=== PATIENT | female | born 1930 | race Caucasian/White ===

== ENCOUNTER 2016-12-21 22:30 | Emergency (ER) | payer MEDICARE, BC ==
[2016-12-22 01:12] VITALS: BP 168/94
== END 2016-12-22 01:10 | disposition left against medical advice (07) ==
LOC: ER 22:30
DX: Z53.21 Procedure and treatment not carried out due to patient leaving prior to being seen by health care provider (principal)

== ENCOUNTER 2016-12-24 01:04 | Emergency (ER) | payer MEDICARE, BC ==
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
[2016-12-24 01:43] LABS: Hematocrit 41.5 % (37.0-47.0); Hemoglobin 14.4 gm/dL (12.5-16.0); Mean Cell Volume 84.9 fl (78-100); Mean Corpuscular Hemoglobin 29.4 pg (27-31); Mean Corpuscular Hgb Conc 34.7 g/dl (32-36); Mean Platelet Volume 11.2 fl (6.0-9.5); Neutrophil # 7.2 K/mm3 (1.3-6.0); Platelet Count 191 K/mm3 (150-450); Red Blood Count 4.89 M/mm3 (4.2-5.4); Red Cell Distribution Width 13.6 % (11.5-14.0); White Blood Count 9.6 K/mm3 (4.0-10.5)
[2016-12-24 02:04] LABS: ALT 19 U/L (19-67); AST 17 U/L (0-48); Albumin * 3.4 gm/dl (3.4-5.0); Alkaline Phosphatase * 48 U/L (50-170); Anion Gap 12.2 mmol/L (6.8-13.8); BUN/Creatinine Ratio 23.9 (9.0-21.6); Bilirubin, Total 0.5 mg/dL (0.0-1.1); Blood Urea Nitrogen 27 mg/dL (3-23); Ca. Corrected For Albumin 9.3 mg/dL (8.4-10.2); Calcium * 9.1 mg/dL (7.9-10.9); Carbon Dioxide 28.5 mmol/L (24-32.6); Chloride 103 mmol/L (97-106); Glucose * 122 mg/dL (70-110); Potassium 3.7 mmol/L (3.4-4.6); Sodium 140 mmol/L (132-142); Total Protein 6.9 gm/dL (6.2-8.2); Troponin I Less than 0.017 ng/ml (0.00-0.10)
[2016-12-24] MEDS ORDERED: DICLOFENAC SODIUM 100 APPL TUBE TP ONE (02:50)
[2016-12-24 03:54] VITALS: BP 149/89
== END 2016-12-24 03:26 | disposition home or self-care (01) ==
LOC: ER 01:04
DX: E86.0 Dehydration (principal); S83.92XA Sprain of unspecified site of left knee, initial encounter; W17.89XA Other fall from one level to another, initial encounter; Y93.9 Activity, unspecified; Y92.481 Parking lot as the place of occurrence of the external cause; S83.91XA Sprain of unspecified site of right knee, initial encounter; F41.8 Other specified anxiety disorders; K21.9 Gastro-esophageal reflux disease without esophagitis; I10 Essential (primary) hypertension

== ENCOUNTER 2017-01-14 08:56 | Emergency (ER) | payer MEDICARE, BC ==
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
[2017-01-14 09:38] LABS: Hematocrit 43.8 % (37.0-47.0); Hemoglobin 14.8 gm/dL (12.5-16.0); Mean Cell Volume 85.5 fl (78-100); Mean Corpuscular Hemoglobin 28.9 pg (27-31); Mean Corpuscular Hgb Conc 33.8 g/dl (32-36); Mean Platelet Volume 10.6 fl (6.0-9.5); Neutrophil # 4.2 K/mm3 (1.3-6.0); Neutrophil % 68.7 % (42-75.0); Platelet Count 214 K/mm3 (150-450); Red Blood Count 5.12 M/mm3 (4.2-5.4); Red Cell Distribution Width 13.2 % (11.5-14.0); White Blood Count 6.1 K/mm3 (4.0-10.5)
[2017-01-14 09:57] LABS: Albumin * 3.5 gm/dl (3.4-5.0); Anion Gap 11.8 mmol/L (6.8-13.8); BUN/Creatinine Ratio 13.1 (9.0-21.6); Bilirubin, Total 0.6 mg/dL (0.0-1.1); Ca. Corrected For Albumin 9.3 mg/dL (8.4-10.2); Calcium * 9.2 mg/dL (7.9-10.9); Potassium 3.8 mmol/L (3.4-4.6); Total Protein 7.5 gm/dL (6.2-8.2)
[2017-01-14 10:42] LABS: Urine Bilirubin Negative (NEGATIVE); Urine Blood Negative /ul (NEGATIVE); Urine Ketone Negative (NEGATIVE); Urine Nitrite Negative (NEGATIVE); Urine Protein Negative (NEGATIVE); Urine Specific Gravity 1.015 SP.GR. (1.005-1.010); Urine Urobilinogen Normal (NORMAL)
[2017-01-14 10:45] VITALS: BP 141/77
[2017-01-14 10:51] LABS: Urine Appearance Clear; Urine Bacteria None Seen; Urine Color Yellow; Urine RBC None Seen /hpf (0-5); Urine WBC None Seen /hpf (0-5)
== END 2017-01-14 10:55 | disposition home or self-care (01) ==
LOC: ER 08:56
DX: J32.3 Chronic sphenoidal sinusitis (principal)

== ENCOUNTER 2020-02-25 12:28 | Inpatient (IN) ==
[2020-02-25] MEDS ORDERED: NORMAL SALINE 1,000 ML IV ONE ×4 (12:48→16:50)
[2020-02-25] MEDS ORDERED: DILTIAZEM HCL 5 MG/ML VIAL IV ONE ×2 (12:48→13:48)
[2020-02-25] MEDS ORDERED: DILTIAZEM HCL 125 MG in DEXTROSE 5 % IN WATER 100 ML IV PRN ×2 (13:11)
[2020-02-25 13:47] LABS: Hematocrit 41.2 % (37.0-47.0); Hemoglobin 13.3 gm/dL (12.5-16.0); Mean Cell Volume 88.4 fl (78-100); Mean Corpuscular Hemoglobin 28.5 pg (27-31); Mean Corpuscular Hgb Conc 32.3 g/dl (32-36); Mean Platelet Volume 11.3 fl (8-12.5); Neutrophil # 15.6 K/mm3 (1.3-6.0); Neutrophil % 87.1 % (42-75.0); Platelet Count 259 K/mm3 (150-450); Red Blood Count 4.66 M/mm3 (4.2-5.4); Red Cell Distribution Width 14.6 % (11.5-14.0); White Blood Count 17.9 K/mm3 (4.0-10.5)
[2020-02-25 14:06] LABS: Albumin * 2.9 gm/dl (3.4-5.0); Anion Gap 11.5 mmol/L (6.8-13.8); BUN/Creatinine Ratio 26.3 (9.0-21.6); Bilirubin, Total 0.7 mg/dL (0.0-1.1); Ca. Corrected For Albumin 9.4 mg/dL (8.4-10.2); Calcium * 8.8 mg/dL (7.9-10.9); Carbon Dioxide 28.5 mmol/L (24-32.6); Total Protein 6.8 gm/dL (6.2-8.2)
[2020-02-25 14:08] LABS: Troponin I 0.401 ng/mL (0.00-0.10)
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
[2020-02-25 16:26] LABS: Urine Appearance Slightly Cloudy (CLEAR); Urine Color Yellow
[2020-02-25 16:30] LABS: Urine Bilirubin 1 mg/dl (NEGATIVE); Urine Blood 250 /ul (NEGATIVE); Urine Ketone Negative (NEGATIVE)
[2020-02-25 16:31] LABS: Urine Bacteria None Seen; Urine Nitrite Negative (NEGATIVE); Urine Protein 30 mg/dL (NEGATIVE); Urine RBC 0-5 /hpf (0-5); Urine Urobilinogen Normal (NORMAL); Urine WBC 0-5 /hpf (0-5)
[2020-02-25 16:32] LABS: Urine Amorphous Sediment Few - 1+ (NONE-FEW); Urine Hyaline Cast 0-5 /LPF
[2020-02-25] MEDS ORDERED: METOPROLOL TARTRATE 1 MG/ML AMPUL IV ONE (18:15)
[2020-02-25] MEDS: DILTIAZEM HCL 125 MG in DEXTROSE 5 % IN WATER 100 ML IV PRN ×2 (18:31)
[2020-02-25] MEDS ORDERED: POLYVINYL ALCOHOL 150 DROP BTL EACHEYE PRN (19:10)
--- NOTE | 2020-02-25 19:20 | HP ---
Chief Complaint - Chief Complaint Date of Service: 02/25/20 Time of Service: 18:15 Chief Complaint: Multiple falls, rhabdomyolysis, atrial fibrillation with RVR History of Present Illness: Bharti Werner is an 89-year-old patient of Dr. Emile Barrera MD who is admitted through the emergency room for multiple body trauma sustained in a fall at home. She fell sometime on Thursday (yesterday) and had been on the floor since the fall. She was found this morning and brought to the hospital per EMS. She has a lot of facial bruising and swelling, bruises on her knees arms and chest. The nasal bone is depressed and tender. The right cheek is also tender in the right maxillary area. She was found to be in atrial fibrillation with RVR was treated with IV Cardizem in ER which slowed her heart rate down into the upper 90s and lower 100s. After being moved from the ER to her MedSurg bed her heart rate jumped up into the 190s. Admission lab: White count is 17,900 with 87% neutrophils and some bands. Hemoglobin is normal at 13.3 g and hematocrit is 41.2% but I suspect is hemoconcentrated. MCV is normal at 88. Her sodium is 142, potassium 4.0, chloride 105, CO2 is 28.5. The BUN is 51 and the creatinine is 1.94 with an EGFR of 26. Blood sugar was randomly 158. Her AST is elevated at 133 but the ALT and alkaline Rajesh are both normal. Her CK is 3552 and the troponin is elevated at 0.401. Her total protein is 6.8 and albumin is decreased at 2.9. The urinary protein is 30 with blood of 250 and I could test positive. All other values were normal and no culture was set up. Imaging: CT of the chest shows mild cardiomegaly, a 3.6 cm adrenal adenoma, lingular atelectasis versus scar, and 11.6 mm groundglass right upper lobe nodule, and a nondisplaced fracture of the right sixth rib. CT scan of the cervical spine shows degenerative disc disease at C5-C6 and C6-C7 without any visible fractures. CT of the face shows a probable occult fracture with air- fluid levels in the right frontal and left maxillary sinuses. There is mucosal disease of the ethmoids and right maxillary sinus. There is right periorbital swelling with a depressed nasal bone fracture, right cheek swelling with air dissecting into the soft tissue, and swollen lips. I suspect she has an occult maxillary fracture. CT scan of the head just shows age-related atrophy but no acute event. X-ray of the knee shows DJD of the knees. X-ray of the wrist does not reveal an acute fracture. There is a osseous density in the ulnocarpal compartment that appears to be old. Medical History (Last Reviewed 02/25/20 @ 18:06 by Yana Lopez RN) Osteoarthritis of knees, bilateral (Chronic) Rhinitis, allergic (Chronic) Onset Date: Unknown Raynaud's disease (Chronic) Onset Date: ~09/22/14 Hypokalemia (Chronic) Onset Date: ~04/19/12 Hypertension (Chronic) Onset Date: ~04/18/13 Hyperlipidemia (Chronic) Onset Date: ~04/18/13 GERD (gastroesophageal reflux disease) (Chronic) Onset Date: Unknown Diverticulitis (Chronic) Onset Date: Unknown Constipation (Chronic) Onset Date: ~04/18/13 Chronic hypokalemia (Chronic) Onset Date: ~06/22/16 Benign paroxysmal positional vertigo (Chronic) Onset Date: ~11/24/13 Anxiety (Chronic) Onset Date: Unknown CVA (cerebral vascular accident) Cystocele, lateral Onset Date: Unknown Gastroenteritis Onset Date: Unknown Hemorrhoids Onset Date: Unknown Rectocele Onset Date: Unknown Sinusitis, acute Onset Date: Unknown Urinary tract infection Onset Date: Unknown Varicose veins of lower extremity Onset Date: Unknown Surgical History: Surgical History (Last Reviewed 02/25/20 @ 18:07 by Yana Lopez RN) H/O colonoscopy Onset Date: ~06/20/08 08- internal hemorrhoid, 03/21/14- tubular ademona x 2 serrated adenoma, hyperplastic polyp History of YAG laser capsulotomy of lens Onset Date: ~01/01/10 01/15/10 History of cataract surgery Onset Date: ~08/03/07 10/26/07 History of cholecystectomy Onset Date: ~11/16/02 Family History: Family History (Last Reviewed 02/25/20 @ 18:07 by Yana Lopez RN) Brother Myocardial infarction Mother Cancer liver Asthma Son Cancer colon Social History: (Last Reviewed 02/25/20 @ 18:08 by Yana Lopez RN) Social History: care home: No Marital status: / current occupational status: retired current occupation: retired Service: No Tobacco: Smoking Status: Former smoker Alcohol: alcohol intake: never Substance Use: substance use type: does not use Dietary Habits: caffeine: No Review Of Systems (GEN) - Review of Systems Generalized/Overall Review: Present: Weakness, Malaise EENTM: Present: Blurred Vision, Nose Pain, Other - Right maxillary pain and swelling. Marked facial swelling and ecchymosis with "raccoon eyes". Depressed nasal fracture and swollen lips.. Absent: Double Vision Respiratory: Present: No Symptoms Reported Cardiac: Present: Other - She is asymptomatic but with atrial fib and marked RVR into the 180s and 190s. Abdominal: Present: No Symptoms Reported Genitourinary: Present: No Symptoms Reported Musculoskeletal: Present: Joint Pain - Right rib pain, bilateral knee pain, left wrist pain, right facial pain, nasal bone pain., Muscle Pain Neurological: Present: Anxiety, Weakness Skin: Present: Bruising - Diffuse bruising of the face arms knees. She is on Plavix. Endocrine: Present: No Symptoms Reported Immunizations: IMMUNIZATION HX Immunizations Up to Date Yes History of Influenza Vaccine More Information Required Hx Pneumococcal Vaccination More Information Required Allergies/Adverse Reactions: Allergies Allergy/AdvReac Type Severity Reaction Status Date / Time amoxicillin Allergy Unknown Verified 02/25/20 18:08 azithromycin [From Zithromax] Allergy Unknown Verified 02/25/20 18:08 Home Medications: HOME MEDICATIONS L. gasseri-B. bifidum-B longum 1.5 billion cell capsule 1 cap PO .COMPLEX cap 02/01/18 [Last Taken Unknown] artifi.tears(hypromellose)(PF) 0.3 % eye drops 1 drp OP 4-8XD PRN 02/01/18 [Last Taken Unknown] cholecalciferol (vitamin D3) 125 mcg (5,000 unit) tablet 5,000 unit PO DAILY 02/01/18 [Last Taken Unknown] multivitamin 1 tab PO DAILY 02/01/18 [Last Taken Unknown] acetaminophen 500 mg tablet 1,000 mg PO Q6H PRN tab 03/24/18 [Last Taken 11/07/18 16:15] phenylephrine HCl 10 mg tablet 10 mg PO DAILY PRN tab 10/03/19 [Last Taken Unknown] meclizine 25 mg tablet 25 mg PO TID PRN #100 tab 11/03/19 [Last Taken Unknown] atenolol 50 mg tablet 50 mg PO DAILY #60 tab 01/17/20 [Last Taken Unknown] clopidogrel 75 mg tablet See Rx Instructions .ROUTE .COMPLEX #60 tab 01/17/20 [Last Taken Unknown] nifedipine 30 mg tablet,extended release 30 mg PO HS #60 tab 01/17/20 [Last Taken Unknown] alprazolam 0.25 mg tablet 0.25 mg PO Q6H PRN #90 tab 01/31/20 [Last Taken Unknown] levothyroxine 88 mcg tablet 88 mcg PO DAILY #90 tab 01/31/20 [Last Taken Unknown] Exam - Exam Vital Signs: Vital Signs - Last Taken Temp 36.5 C 02/25/20 17:25 Pulse 143 H 02/25/20 18:45 Resp 20 02/25/20 17:25 BP 137/91 H 02/25/20 18:31 Pulse Ox 96 02/25/20 17:25 Constitutional: Present: Alert, Oriented x3, Cooperative, Well developed, Well nourished, No distress, Elderly, Obese ENT Exam: Present: hearing grossly normal, pharynx normal, TMs normal, muffled/hoarse voice Eye Exam: bilateral eye: PERRL, EOMI, right eye: normal inspection - Left eye is swollen shut. Bilateral periorbital edema and ecchymosis. Neck: Present: limited range of motion, stiff neck, tender midline Back Exam: Present: other - Bruising on back Respiratory: Present: chest non-tender, lungs clear, normal breath sounds, no respiratory distress, no accessory muscle use Cardiovascular/Chest: Present: tachycardia Peripheral Pulses: carotid (R): 2+, carotid (L): 2+, radial (R): 2+, radial (L): 2+ Abdomen: Present: Normal bowel sounds, soft, nontender, nondistended, no rebound tenderness, no hepatospenomegaly, no masses, obese /Rectal: Present: Exam deferred Extremity: Present: no calf tenderness, normal capillary refill, other - Ecchymosis of both knees Skin Exam: Present: other - Diffuse ecchymosis as described previously Lymphatic: Present: no adenopathy Neurologic: Present: medical claims manager II-XII nml as tested, no motor/sensory deficits, abnormal cerebellar tests, motor weakness Appearance: Present: no memory impairment, disheveled Eye contact: Present: cooperative, good eye contact, increased rate of speech, other - Hoarseness Thoughts: Present: normal thought pattern, no apparent hallucination Diagnostic Studies: Abnormal Lab Results 02/25/20 02/25/20 02/25/20 Range/Units 13:39 13:39 15:57 WBC 17.9 H (4.0-10.5) K/mm3 RDW 14.6 H (11.5-14.0) % Immature Gran % (Auto) 0.80 H (0.001-0.429) % Immature Gran # (Auto) 0.15 H (0.000-0.0310) K/mm3 Neutrophils % 87.1 H (42-75.0) % Lymphocytes % 4.1 L (20-51) % Neutrophils # 15.6 H (1.3-6.0) K/mm3 Lymphocytes # 0.74 L (1.5-3.5) k/mm3 Monocytes # 1.4 H (0.0-1.0) k/mm3 BUN 51 H D (3-23) mg/dL Creatinine 1.94 H D (0.4-1.4) mg/dL Est GFR (Non-Af Amer) 26 L D (60-130) mL/min BUN/Creatinine Ratio 26.3 H (9.0-21.6) Random Glucose 158 H (70-110) mg/dL AST 133 H (0-48) U/L Creatine Kinase 3552 H (0-259) U/L Troponin I 0.401 H* (0.00-0.10) ng/mL Albumin 2.9 L (3.4-5.0) gm/dl Urine Protein 30 H (NEGATIVE) mg/dL Urine Blood 250 H (NEGATIVE) /ul Urine Bilirubin 1 H (NEGATIVE) mg/dl Urine Ictotest Positive H (NEGATIVE) Hyaline Casts 0-5 H (NONE) /LPF Laboratory Results WBC 17.9 K/mm3 (4.0-10.5) H 02/25/20 13:39 RBC 4.66 M/mm3 (4.2-5.4) 02/25/20 13:39 Hgb 13.3 gm/dL (12.5-16.0) 02/25/20 13:39 Hct 41.2 % (37.0-47.0) 02/25/20 13:39 MCV 88.4 fl (78-100) 02/25/20 13:39 MCH 28.5 pg (27-31) 02/25/20 13:39 MCHC 32.3 g/dl (32-36) 02/25/20 13:39 RDW 14.6 % (11.5-14.0) H 02/25/20 13:39 Plt Count 259 K/mm3 (150-450) 02/25/20 13:39 MPV 11.3 fl (8-12.5) 02/25/20 13:39 Immature Gran % (Auto) 0.80 % (0.001-0.429) H 02/25/20 13:39 Immature Gran # (Auto) 0.15 K/mm3 (0.000-0.0310) H 02/25/20 13:39 Neutrophils % 87.1 % (42-75.0) H 02/25/20 13:39 Lymphocytes % 4.1 % (20-51) L 02/25/20 13:39 Monocytes % 7.9 % (0.0-9) 02/25/20 13:39 Eosinophils % 0.0 % (0.0-3.0) 02/25/20 13:39 Basophils % 0.1 % (0.0-1.0) 02/25/20 13:39 Nucleated RBC % 0.0 k/mm3 (0-1) 02/25/20 13:39 Neutrophils # 15.6 K/mm3 (1.3-6.0) H 02/25/20 13:39 Lymphocytes # 0.74 k/mm3 (1.5-3.5) L 02/25/20 13:39 Monocytes # 1.4 k/mm3 (0.0-1.0) H 02/25/20 13:39 Eosinophils # 0.0 k/mm3 (0.0-0.7) 02/25/20 13:39 Absolute Basophils 0.0 k/mm3 (0.0-0.1) 02/25/20 13:39 Sodium 141 mmol/L (132-142) 02/25/20 13:39 Plasma Sodium 142 mmol/L (130-142) 02/25/20 13:39 Potassium 4.0 mmol/L (3.4-4.6) 02/25/20 13:39 Chloride 105 mmol/L (97-106) 02/25/20 13:39 Carbon Dioxide 28.5 mmol/L (24-32.6) 02/25/20 13:39 Anion Gap 11.5 mmol/L (6.8-13.8) 02/25/20 13:39 BUN 51 mg/dL (3-23) H D 02/25/20 13:39 Creatinine 1.94 mg/dL (0.4-1.4) H D 02/25/20 13:39 Est GFR (Non-Af Amer) 26 mL/min (60-130) L D 02/25/20 13:39 BUN/Creatinine Ratio 26.3 (9.0-21.6) H 02/25/20 13:39 Random Glucose 158 mg/dL (70-110) H 02/25/20 13:39 Calcium 8.8 mg/dL (7.9-10.9) 02/25/20 13:39 Calcium Adj for Albumin 9.4 mg/dL (8.4-10.2) 02/25/20 13:39 Total Bilirubin 0.7 mg/dL (0.0-1.1) 02/25/20 13:39 AST 133 U/L (0-48) H 02/25/20 13:39 ALT 66 U/L (19-67) 02/25/20 13:39 Alkaline Phosphatase 54 U/L (50-170) 02/25/20 13:39 Creatine Kinase 3552 U/L (0-259) H 02/25/20 13:39 Troponin I 0.401 ng/mL (0.00-0.10) H* 02/25/20 13:39 Total Protein 6.8 gm/dL (6.2-8.2) 02/25/20 13:39 Albumin 2.9 gm/dl (3.4-5.0) L 02/25/20 13:39 Urine Color Yellow 02/25/20 15:57 Urine Appearance Slightly cloudy (CLEAR) 02/25/20 15:57 Urine pH 5.0 pH (5.0-7.0) 02/25/20 15:57 Ur Specific [place] 1.030 SP.GR. (1.005-1.010) 02/25/20 15:57 Urine Protein 30 mg/dL (NEGATIVE) H 02/25/20 15:57 Urine Glucose (UA) Negative mg/dL (NEGATIVE) 02/25/20 15:57 Urine Ketones Negative mg/dL (NEGATIVE) 02/25/20 15:57 Urine Blood 250 /ul (NEGATIVE) H 02/25/20 15:57 Urine Nitrate Negative (NEGATIVE) 02/25/20 15:57 Urine Bilirubin 1 mg/dl (NEGATIVE) H 02/25/20 15:57 Urine Ictotest Positive (NEGATIVE) H 02/25/20 15:57 Prot Sulfosalicylic Acd 1+ mg/dL (0) 02/25/20 15:57 Urine Urobilinogen Normal EU/dl (NORMAL) 02/25/20 15:57 Ur Leukocyte Esterase Negative /ul (NEGATIVE) 02/25/20 15:57 Urine RBC 0-5 /hpf (0-5) 02/25/20 15:57 Urine WBC 0-5 /hpf (0-5) 02/25/20 15:57 Ur Epithelial Cells 0-5 /hpf (0-5) 02/25/20 15:57 Amorphous Sediment Few - 1+ (NONE-FEW) 02/25/20 15:57 Urine Bacteria None seen (NONE) 02/25/20 15:57 Hyaline Casts 0-5 /LPF (NONE) H 02/25/20 15:57 Urine Culture Comments No culture indicated 02/25/20 15:57 Assessment/Plan - Narrative Narrative: 1. Start Cardizem drip 2. Metoprolol 5 mg IV push 3. DC atenolol and start metoprolol 50 mg twice daily p.o. 4. Neuro checks every 4 hours 5. Morning labs to include CBC CMP CK, urinary myoglobin, and repeat troponin 6. Start with clear liquids and progress as tolerated 7. PT, OT, and speech therapy all ordered. - Assessment/Plan (1) Fall at home Problem: Acute Qualifiers: Encounter type: subsequent encounter Qualified Code(s): W19.XXXD - Unspecified fall, subsequent encounter; Y92.009 - Unspecified place in unspecified non-institutional (private) residence as the place of occurrence of the external cause (2) Traumatic rhabdomyolysis Problem: Acute Qualifiers: Encounter type: subsequent encounter Qualified Code(s): T79.6XXD - Traumatic ischemia of muscle, subsequent encounter (3) Atrial fibrillation with RVR Problem: Acute (4) Maxillary fracture Problem: Acute Qualifiers: Encounter type: subsequent encounter Fracture type: closed Laterality: right (5) Right rib fracture Problem: Acute Qualifiers: Encounter type: subsequent encounter Fracture type: closed (6) Nasal bone fracture Problem: Acute Qualifiers: Encounter type: subsequent encounter Fracture type: closed (7) Traumatic ecchymosis of face Problem: Acute Qualifiers: Encounter type: subsequent encounter Qualified Code(s): S00.83XD - Contusion of other part of head, subsequent encounter (8) Traumatic ecchymosis of knee Problem: Acute Qualifiers: Encounter type: subsequent encounter (9) Traumatic ecchymosis of multiple sites of upper extremity and shoulder Problem: Acute Qualifiers: Encounter type: subsequent encounter
[2020-02-25] MEDS: NIFEdipine 30 MG TAB.SR.24H PO SCH (21:20)
[2020-02-25] MEDS: METOPROLOL TARTRATE 50 MG TABLET PO SCH (21:21)
[2020-02-25] MEDS: ENOXAPARIN SODIUM 40 MG/0.4 ML SYRG SC SCH (21:21)
[2020-02-26] MEDS: DILTIAZEM HCL 125 MG in DEXTROSE 5 % IN WATER 100 ML IV PRN ×4 (02:09→11:14)
[2020-02-26] MEDS: LEVOTHYROXINE SODIUM 88 MCG TABLET PO SCH ×2 (05:23→07:27)
[2020-02-26 06:33] LABS: Hematocrit 36.9 % (37.0-47.0); Hemoglobin 11.8 gm/dL (12.5-16.0); Mean Cell Volume 89.1 fl (78-100); Mean Corpuscular Hemoglobin 28.5 pg (27-31); Mean Platelet Volume 11.6 fl (8-12.5); Neutrophil # 12.3 K/mm3 (1.3-6.0); Neutrophil % 82.4 % (42-75.0); Platelet Count 239 K/mm3 (150-450); Red Blood Count 4.14 M/mm3 (4.2-5.4); Red Cell Distribution Width 14.8 % (11.5-14.0)
[2020-02-26 06:54] LABS: Albumin * 2.5 gm/dl (3.4-5.0); Bilirubin, Total 0.8 mg/dL (0.0-1.1); Ca. Corrected For Albumin 9.3 mg/dL (8.4-10.2); Calcium * 8.4 mg/dL (7.9-10.9); Carbon Dioxide 27.9 mmol/L (24-32.6); Potassium 3.9 mmol/L (3.4-4.6)
[2020-02-26 07:02] LABS: Troponin I 0.34 ng/mL (0.00-0.10)
--- NOTE | 2020-02-26 09:29 | PN ---
Subjective - Date and Time Seen Date: 02/26/20 Time: 09:00 Subjective Narrative: Bharti seems a little better this morning. Her speech is clear. She has no new problems or complaints. Her facial swelling has gone down a fair amount and there is no new areas of ecchymosis. The lower lip remains very swollen. This makes it difficult for her to suck through a straw but she can. She choked on the water when I offered it to her and it made her cough. She says that happens at home as well and then she has stress incontinence from coughing. Her vital signs have been stable and she is afebrile. Lab: White count is down to 15,000, hemoglobin has dropped to 11.8 g and hematocrit has dropped to 36.9%. There are 82% neutrophils which is down from 88%. Electrolytes show sodium of 142 potassium 3.9 chloride 108 and CO2 of 27.9. The BUN has dropped one-point to 50 but the creatinine has dropped to 1.47 from 1.94 and EGFR has increased to 36 up from 26 yesterday. Albumin has dropped to 2.5 from 2.9 yesterday. The AST has dropped to 103 and is down from 133. The troponin is still high at 0.34 but is down from admission of 0.401. Her heart rate at the time of exam is 96 bpm and her blood pressure is 98/70. She is alert and conversant and having urine output with those numbers. She remains in atrial fibrillation. She is still on a diltiazem drip. She is receiving oral metoprolol 50 mg twice daily for rate control but it is also probably lowering her blood pressure a bit. Her care will be turned back to Dr. Drew tomorrow morning. Objective - Review of Systems Generalized/Overall Review: Reports: Weakness, Malaise EENTM: Reports: Nose Pain, Other - The facial swelling has decreased and she is now able to open the left eye through a slit. Her nose is swollen and tender over the bridge. Her lower lip remains very swollen. Respiratory: Reports: Cough Cardiac: Reports: Other - She is unaware of her atrial fibrillation or RVR symptomatically. Abdominal: Reports: No Symptoms Reported Genitourinary Symptoms: Reports: Incontinent - Stress incontinence. Admission UA was unremarkable for an infectious etiology. Musculoskeletal Complaints: Reports: Joint Pain - Polymyalgias and polyarthralgias, Muscle Pain Neurological: Reports: Weakness Skin: Reports: Bruising - Diffuse facial ecchymosis. The bruising is darker in color and there is less swelling. Endocrine: Reports: No Symptoms Reported - Vitals Vitals: Last Vital Signs Temp 37.0 C 02/26/20 06:50 Pulse 99 02/26/20 06:50 Resp 19 02/26/20 06:50 BP 100/57 02/26/20 06:50 Pulse Ox 94 02/26/20 06:50 - Abnormal Lab Findings Abnormal Lab Findings: Abnormal Lab Results 02/25/20 02/25/20 02/25/20 Range/Units 13:39 13:39 15:57 WBC 17.9 H (4.0-10.5) K/mm3 RBC (4.2-5.4) M/mm3 Hgb (12.5-16.0) gm/dL Hct (37.0-47.0) % RDW 14.6 H (11.5-14.0) % Immature Gran % (Auto) 0.80 H (0.001-0.429) % Immature Gran # (Auto) 0.15 H (0.000-0.0310) K/mm3 Neutrophils % 87.1 H (42-75.0) % Lymphocytes % 4.1 L (20-51) % Neutrophils # 15.6 H (1.3-6.0) K/mm3 Lymphocytes # 0.74 L (1.5-3.5) k/mm3 Monocytes # 1.4 H (0.0-1.0) k/mm3 Plasma Sodium (130-142) mmol/L Chloride (97-106) mmol/L BUN 51 H D (3-23) mg/dL Creatinine 1.94 H D (0.4-1.4) mg/dL Est GFR (Non-Af Amer) 26 L D (60-130) mL/min BUN/Creatinine Ratio 26.3 H (9.0-21.6) Random Glucose 158 H (70-110) mg/dL AST 133 H (0-48) U/L Creatine Kinase 3552 H (0-259) U/L Troponin I 0.401 H* (0.00-0.10) ng/mL Total Protein (6.2-8.2) gm/dL Albumin 2.9 L (3.4-5.0) gm/dl Urine Protein 30 H (NEGATIVE) mg/dL Urine Blood 250 H (NEGATIVE) /ul Urine Bilirubin 1 H (NEGATIVE) mg/dl Urine Ictotest Positive H (NEGATIVE) Hyaline Casts 0-5 H (NONE) /LPF 02/26/20 02/26/20 Range/Units 06:25 06:25 WBC 15.0 H (4.0-10.5) K/mm3 RBC 4.14 L (4.2-5.4) M/mm3 Hgb 11.8 L (12.5-16.0) gm/dL Hct 36.9 L (37.0-47.0) % RDW 14.8 H (11.5-14.0) % Immature Gran % (Auto) 0.50 H (0.001-0.429) % Immature Gran # (Auto) 0.07 H (0.000-0.0310) K/mm3 Neutrophils % 82.4 H (42-75.0) % Lymphocytes % 9.6 L (20-51) % Neutrophils # 12.3 H (1.3-6.0) K/mm3 Lymphocytes # 1.44 L (1.5-3.5) k/mm3 Monocytes # 1.1 H (0.0-1.0) k/mm3 Plasma Sodium 143 H (130-142) mmol/L Chloride 108 H (97-106) mmol/L BUN 50 H (3-23) mg/dL Creatinine 1.47 H D (0.4-1.4) mg/dL Est GFR (Non-Af Amer) 36 L D (60-130) mL/min BUN/Creatinine Ratio 34.0 H (9.0-21.6) Random Glucose 136 H (70-110) mg/dL AST 103 H (0-48) U/L Creatine Kinase 2426 H (0-259) U/L Troponin I 0.340 H* (0.00-0.10) ng/mL Total Protein 6.0 L (6.2-8.2) gm/dL Albumin 2.5 L (3.4-5.0) gm/dl Urine Protein (NEGATIVE) mg/dL Urine Blood (NEGATIVE) /ul Urine Bilirubin (NEGATIVE) mg/dl Urine Ictotest (NEGATIVE) Hyaline Casts (NONE) /LPF - EKG/Xray Findings EKG: atrial fibrillation EKG read: Reviewed by me XRAY: ribs Interpretation: Reviewed by me - Exam Constitutional: Present: Alert, Oriented x3, Cooperative, Well developed, Well nourished, Mild distress, Elderly, Obese ENT Exam: Present: nasal congestion, muffled/hoarse voice - But better than yesterday, moist mucous membranes Neck: Present: limited range of motion Breasts: Present: Exam deferred Respiratory: Present: lungs clear, normal breath sounds, no respiratory distress, no accessory muscle use Cardiovascular/Chest: Present: normal peripheral pulses, tachycardia, chest tender - Right lateral chest wall. Has a known right sixth rib fracture., irregularly irregular Abdomen: Present: Normal bowel sounds, soft, nontender, nondistended /Rectal: Present: Exam deferred Extremity: Present: other - Multiple contusions particularly over the anterior knees feet, and upper extremities. Skin Exam: Present: other - Diffuse ecchymosis of the face arms and lower legs Lymphatic: Present: no adenopathy Neurologic: Present: food photographer II-XII nml as tested, no motor/sensory deficits, alert, normal mood/affect, oriented x 3, abnormal cerebellar tests, abnormal gait, motor weakness - Diffusely Appearance: Present: disheveled Eye contact: Present: cooperative, good eye contact Thoughts: Present: normal thought pattern, no apparent hallucination Assessment/Plan Plan Narrative: 1. Continue supportive care and observation. 2. Begin weaning the diltiazem as heart rate allows 3. Repeat morning labs tomorrow. 4. Dr. Drew to assume management tomorrow morning. - Problems/Diagnosis (1) Fall at home Problem: Acute Qualifiers: Encounter type: subsequent encounter Qualified Code(s): W19.XXXD - Unspecified fall, subsequent encounter; Y92.009 - Unspecified place in unspecified non-institutional (private) residence as the place of occurrence of the external cause (2) Traumatic rhabdomyolysis Problem: Acute Qualifiers: Encounter type: subsequent encounter Qualified Code(s): T79.6XXD - Traumatic ischemia of muscle, subsequent encounter (3) Atrial fibrillation with RVR Problem: Acute (4) Maxillary fracture Problem: Acute Qualifiers: Encounter type: subsequent encounter Fracture type: closed Laterality: right (5) Right rib fracture Problem: Acute Qualifiers: Encounter type: subsequent encounter Fracture type: closed (6) Nasal bone fracture Problem: Acute Qualifiers: Encounter type: subsequent encounter Fracture type: closed (7) Traumatic ecchymosis of face Problem: Acute Qualifiers: Encounter type: subsequent encounter Qualified Code(s): S00.83XD - Contusion of other part of head, subsequent encounter (8) Traumatic ecchymosis of knee Problem: Acute Qualifiers: Encounter type: subsequent encounter (9) Traumatic ecchymosis of multiple sites of upper extremity and shoulder Problem: Acute Qualifiers: Encounter type: subsequent encounter
[2020-02-26] MEDS: METOPROLOL TARTRATE 50 MG TABLET PO SCH ×2 (09:47→20:17)
[2020-02-26] MEDS: CLOPIDOGREL BISULFATE 75 MG TABLET PO SCH (09:47)
[2020-02-26] MEDS: DILTIAZEM HCL 60 MG TABLET PO SCH ×2 (17:01→20:21)
[2020-02-26] MEDS: NIFEdipine 30 MG TAB.SR.24H PO SCH (20:17)
[2020-02-26] MEDS: ENOXAPARIN SODIUM 40 MG/0.4 ML SYRG SC SCH (20:17)
[2020-02-26] MEDS ORDERED: DILTIAZEM HCL 60 MG TABLET PO SCH (21:00)
[2020-02-27] MEDS: LEVOTHYROXINE SODIUM 88 MCG TABLET PO SCH (05:28)
[2020-02-27 06:37] LABS: Hematocrit 36.2 % (37.0-47.0); Hemoglobin 11.5 gm/dL (12.5-16.0); Mean Cell Volume 89.2 fl (78-100); Mean Corpuscular Hemoglobin 28.3 pg (27-31); Mean Corpuscular Hgb Conc 31.8 g/dl (32-36); Mean Platelet Volume 11.6 fl (8-12.5); Neutrophil # 10.2 K/mm3 (1.3-6.0); Neutrophil % 78.4 % (42-75.0); Platelet Count 244 K/mm3 (150-450); Red Blood Count 4.06 M/mm3 (4.2-5.4); Red Cell Distribution Width 14.4 % (11.5-14.0)
[2020-02-27 06:55] LABS: Albumin * 2.5 gm/dl (3.4-5.0); Anion Gap 10.8 mmol/L (6.8-13.8); BUN/Creatinine Ratio 37.3 (9.0-21.6); Bilirubin, Total 0.9 mg/dL (0.0-1.1); Ca. Corrected For Albumin 9.1 mg/dL (8.4-10.2); Calcium * 8.2 mg/dL (7.9-10.9); Carbon Dioxide 25.9 mmol/L (24-32.6); Potassium 3.7 mmol/L (3.4-4.6); Total Protein 6.2 gm/dL (6.2-8.2)
[2020-02-27] MEDS: DILTIAZEM HCL 60 MG TABLET PO SCH ×3 (08:50→17:37)
[2020-02-27] MEDS: METOPROLOL TARTRATE 50 MG TABLET PO SCH (08:50)
[2020-02-27] MEDS: CLOPIDOGREL BISULFATE 75 MG TABLET PO SCH (08:50)
--- NOTE | 2020-02-27 11:49 | PN ---
Subjective - Date and Time Seen Date: 02/27/20 Time: 11:41 Subjective Narrative: Bharti has been up in the chair for the first time this morning. She requires lots of assistance just to stand or pivot.. Her speech is clear. She has no new problems or complaints. Her facial swelling has gone down a fair amount and there is no new areas of ecchymosis. The lower lip remains very swollen. This makes it difficult for her to suck through a straw but she can. She choked on the water when I offered it to her and it made her cough. She says that happens at home as well and then she has stress incontinence from coughing. Her false teeth were broken when she fell, so it is hard for her to chew. ST today recommended for the time being a soft diet. We have ordered that. Her vital signs have been stable and she is afebrile. On the monitor she remains in a fib, rate 120 to 130. BP holding right around 100 systolic. On both cardizem and metoprolol. For simplicity and to avoid medication interaction problems we will stop the beta dagmar, increase diltiazem to tid and continue to monitor. Objective - Review of Systems Generalized/Overall Review: Reports: Weakness - afraid of falling again. she has had multiple falls in the past. EENTM: Reports: No Symptoms Reported Respiratory: Reports: No Symptoms Reported Cardiac: Reports: No Symptoms Reported Abdominal: Reports: No Symptoms Reported Genitourinary Symptoms: Reports: Incontinent - stress Musculoskeletal Complaints: Reports: Back Pain, Other - facial pain right lateral rib pain bilateral knee pain Neurological: Reports: Anxiety, Weakness Skin: Reports: Bruising Endocrine: Reports: No Symptoms Reported Misc: All systems neg except as marked - Vitals Vitals: Last Vital Signs Temp 36.9 C 02/27/20 09:45 Pulse 126 H 02/27/20 09:45 Resp 13 02/27/20 09:45 BP 124/70 02/27/20 09:45 Pulse Ox 97 02/27/20 09:45 - Abnormal Lab Findings Abnormal Lab Findings: Abnormal Lab Results 02/27/20 02/27/20 Range/Units 06:30 06:30 WBC 13.0 H (4.0-10.5) K/mm3 RBC 4.06 L (4.2-5.4) M/mm3 Hgb 11.5 L (12.5-16.0) gm/dL Hct 36.2 L (37.0-47.0) % MCHC 31.8 L (32-36) g/dl RDW 14.4 H (11.5-14.0) % Immature Gran % (Auto) 0.80 H (0.001-0.429) % Immature Gran # (Auto) 0.11 H (0.000-0.0310) K/mm3 Neutrophils % 78.4 H (42-75.0) % Lymphocytes % 12.9 L (20-51) % Neutrophils # 10.2 H (1.3-6.0) K/mm3 BUN 57 H (3-23) mg/dL Creatinine 1.53 H (0.4-1.4) mg/dL Est GFR (Non-Af Amer) 34 L (60-130) mL/min BUN/Creatinine Ratio 37.3 H (9.0-21.6) Random Glucose 132 H (70-110) mg/dL AST 86 H (0-48) U/L ALT 71 H (19-67) U/L Albumin 2.5 L (3.4-5.0) gm/dl Creatinine is now stable, but better than when she came in. Liver enzymes borderline elevated, will repeat in the future. GFR has improved since admission. wbc 13, hgb 11.5. minimal increase in neutrophil percent. will continue to monitor. - Exam Constitutional: Present: Alert, Oriented x3, Cooperative, Well developed, Well nourished - bmi is 34.2 but albumin is low, suggestive of protein malnutrition. we have added ensure to diet., No distress ENT Exam: Present: normal ENT inspection, hearing grossly normal, other - facial bruising and swelling as previously noted. Neck: Present: trachea midline. Absent: lymphadenopathy (R), lymphadenopathy (L), thyromegaly Respiratory: Present: normal breath sounds, no respiratory distress, other - right lateral rib tendernes Cardiovascular/Chest: Present: no JVD, no murmur, tachycardia, irregularly irregular Abdomen: Present: Normal bowel sounds, soft, nontender, nondistended, no hepatospenomegaly, no masses, obese Extremity: Present: other - both arms bruised. back bruised. lower extremities bruised. Lymphatic: Present: no adenopathy Neurologic: Present: other - anxious affect about falls Appearance: Present: appropriate appearance, appropriate insight Eye contact: Present: cooperative, good eye contact, normal speech Thoughts: Present: normal thought pattern Assessment/Plan Plan Narrative: Plan is continue PT OT. Monitor labs and heart rhythm. Rate control with diltiazem. May be a candidate in the near future for non Vit. K anticoagulation. May require correction placement for a while. eventually, perhaps as an outpt, will need cardiology consult. - Problems/Diagnosis (1) Fall at home Problem: Acute Qualifiers: Encounter type: subsequent encounter Qualified Code(s): W19.XXXD - Unspecified fall, subsequent encounter; Y92.009 - Unspecified place in unspecified non-institutional (private) residence as the place of occurrence of the external cause (2) Dehydration Problem: Acute (3) Rhabdomyolysis Problem: Acute (4) Atrial fibrillation with RVR Problem: Acute (5) Maxillary fracture Problem: Acute Qualifiers: Encounter type: subsequent encounter Fracture type: closed Laterality: right (6) Nasal bone fracture Problem: Acute Qualifiers: Encounter type: subsequent encounter Fracture type: closed (7) Right rib fracture Problem: Acute Qualifiers: Encounter type: subsequent encounter Fracture type: closed (8) Frequent falls Problem: Acute (9) Gait disturbance Problem: Acute (10) Hypoalbuminemia Problem: Acute
[2020-02-27] MEDS: ALPRAZolam 0.25 MG TABLET PO PRN (13:38)
[2020-02-27] MEDS: NIFEdipine 30 MG TAB.SR.24H PO SCH (20:30)
[2020-02-27] MEDS: ENOXAPARIN SODIUM 40 MG/0.4 ML SYRG SC SCH (20:31)
[2020-02-27] MEDS: ACETAMINOPHEN 500 MG TABLET PO PRN (21:03)
[2020-02-28 06:52] LABS: Hematocrit 34.2 % (37.0-47.0); Mean Cell Volume 88.4 fl (78-100); Mean Corpuscular Hemoglobin 28.4 pg (27-31); Mean Corpuscular Hgb Conc 32.2 g/dl (32-36); Mean Platelet Volume 11.8 fl (8-12.5); Neutrophil # 8.1 K/mm3 (1.3-6.0); Neutrophil % 78.4 % (42-75.0); Platelet Count 226 K/mm3 (150-450); Red Blood Count 3.87 M/mm3 (4.2-5.4); Red Cell Distribution Width 14.1 % (11.5-14.0); White Blood Count 10.4 K/mm3 (4.0-10.5)
[2020-02-28 07:01] LABS: Anion Gap 11.9 mmol/L (6.8-13.8); BUN/Creatinine Ratio 44.3 (9.0-21.6); Calcium * 8.3 mg/dL (7.9-10.9); Carbon Dioxide 26.4 mmol/L (24-32.6); Estimated Creat Clear 32.3; Potassium 3.3 mmol/L (3.4-4.6)
[2020-02-28] MEDS: LEVOTHYROXINE SODIUM 88 MCG TABLET PO SCH (07:22)
[2020-02-28] MEDS: ALPRAZolam 0.25 MG TABLET PO PRN (08:33)
[2020-02-28] MEDS: CLOPIDOGREL BISULFATE 75 MG TABLET PO SCH (08:33)
[2020-02-28] MEDS: DILTIAZEM HCL 90 MG TABLET PO SCH ×3 (08:33→16:13)
[2020-02-28] MEDS: AMIODARONE HCL 200 MG TABLET PO SCH ×3 (11:04→16:13)
--- NOTE | 2020-02-28 12:32 | PN ---
Subjective - Date and Time Seen Date: 02/28/20 Time: 12:12 Subjective Narrative: Bharti has been been more active with help this morning. She requires lots of assistance. Her speech is clear. She has left foot and lower leg swelling with left foot drop, ever since the fall, as well as bruising, pain and some weakness at the last shoulder. Because her left lower leg and foot are swollen and painful, it is possible she has a dvt, which we will check for with an ultra sound. The left sided weakness brings up the possibility of CVA, so we will check for that with a brain MRI. Her back is very bruised and she has left foot drop, which raises the possibility of nerve compression in the lumbosacral spine, so we will also image that area. Her facial swelling has gone down a fair amount and there is no new areas of ecchymosis. The lower lip remains very swollen. She is able to take liquids and food better today. Her heart rate is in the 120's, but increased to the 140's when ambulation, asymptomatic. BP is better, that is less low. She is afebrile. On the monitor she remains in a fib. Because of the uncontrolled heart rate I increased her diltiazem and added amiodarone. We will continue to monitor her rhythm. Her potassium is a tiny bit low, for reasons that are unclear to me. We will check a BMP tomorrow. Her wbc count has normalized, but her Hgb seems to be trending downward, so we check a hemogram tomorrow. Objective - Review of Systems Generalized/Overall Review: Reports: Weakness. Denies: Chills, Fever, Diaphoresis EENTM: Reports: Other - facial and lip pain bruising and swelling. Respiratory: Reports: No Symptoms Reported Cardiac: Reports: Edema - left lower leg and foot with foot drop in left foot as well. Abdominal: Reports: No Symptoms Reported Genitourinary Symptoms: Reports: No Symptoms Reported Musculoskeletal Complaints: Reports: Other - right rib pain, left shoulder indu and weakness. extensive bruising of back. Neurological: Reports: Anxiety, Other - left foot drop, weak left shoulder. Denies: Headache Skin: Reports: Bruising, Other - open skin areas both legs, we will keep them clean and observe. Endocrine: Reports: No Symptoms Reported Misc: All systems neg except as marked - Vitals Vitals: Last Vital Signs Temp 36.4 C 02/28/20 10:48 Pulse 127 H 02/28/20 10:48 Resp 16 02/28/20 10:48 BP 124/62 02/28/20 10:48 Pulse Ox 96 02/28/20 10:48 - Abnormal Lab Findings Abnormal Lab Findings: Abnormal Lab Results 02/28/20 02/28/20 Range/Units 06:47 06:47 RBC 3.87 L (4.2-5.4) M/mm3 Hgb 11.0 L (12.5-16.0) gm/dL Hct 34.2 L (37.0-47.0) % RDW 14.1 H (11.5-14.0) % Immature Gran % (Auto) 0.60 H (0.001-0.429) % Immature Gran # (Auto) 0.06 H (0.000-0.0310) K/mm3 Neutrophils % 78.4 H (42-75.0) % Lymphocytes % 9.6 L (20-51) % Neutrophils # 8.1 H (1.3-6.0) K/mm3 Lymphocytes # 1.00 L (1.5-3.5) k/mm3 Potassium 3.3 L (3.4-4.6) mmol/L BUN 51 H (3-23) mg/dL Est GFR (Non-Af Amer) 47 L D (60-130) mL/min BUN/Creatinine Ratio 44.3 H (9.0-21.6) Random Glucose 124 H (70-110) mg/dL - Exam Constitutional: Present: Alert, Oriented x3, Cooperative, Well developed, No distress ENT Exam: Present: hearing grossly normal Neck: Present: normal inspection, trachea midline. Absent: lymphadenopathy (R), lymphadenopathy (L), thyromegaly Respiratory: Present: lungs clear, other - tender right lateral rib Cardiovascular/Chest: Present: tachycardia, irregularly irregular Abdomen: Present: Normal bowel sounds, soft, nontender, nondistended, no hepatospenomegaly, no masses /Rectal: Present: Exam deferred Extremity: Present: other - swelling left lowe leg and foot with foot drop on left. arms remain bruised. left shoulder bruised tender and weak. Skin Exam: Present: warm/dry. Absent: diaphoresis Lymphatic: Present: no adenopathy Neurologic: Present: oriented x 3, abnormal gait Appearance: Present: appropriate appearance, appropriate insight, neat Eye contact: Present: cooperative, good eye contact, normal speech Thoughts: Present: normal thought pattern Assessment/Plan - Problems/Diagnosis (1) Left foot drop Problem: Acute Narrative: will check for nerve compression at the level of the lumbosacral spine and will check because of left arm weakness and possible CVA. (2) Left leg pain Problem: Acute Narrative: consider dvt or left lumbosacral nerve compression. we will will do ultrasound for dvt and image for nerve compression at level of lumbosacral spine. (3) Left leg swelling Problem: Acute (4) Left-sided weakness Problem: Acute Narrative: will check for CVA (5) Abrasions of multiple sites Problem: Acute Narrative: lower extremities, bilateral, multiple, superficial (6) Fall at home Problem: Acute Qualifiers: Encounter type: subsequent encounter Qualified Code(s): W19.XXXD - Unspecified fall, subsequent encounter; Y92.009 - Unspecified place in unspecified non-institutional (private) residence as the place of occurrence of the external cause (7) Dehydration Problem: Acute Narrative: will check bmp and hemogram tomorrow. (8) Rhabdomyolysis Problem: Acute (9) Atrial fibrillation with RVR Problem: Acute (10) Maxillary fracture Problem: Acute Qualifiers: Encounter type: subsequent encounter Fracture type: closed Laterality: right (11) Nasal bone fracture Problem: Acute Qualifiers: Encounter type: subsequent encounter Fracture type: closed (12) Right rib fracture Problem: Acute Qualifiers: Encounter type: subsequent encounter Fracture type: closed (13) Frequent falls Problem: Acute (14) Gait disturbance Problem: Acute (15) Hypoalbuminemia Problem: Acute
[2020-02-28] MEDS ORDERED: AMIODARONE HCL 200 MG TABLET PO SCH (13:00)
[2020-02-28] MEDS ORDERED: LEVOFLOXACIN 500 MG TABLET PO SCH (16:00)
[2020-02-28] MEDS: ACETAMINOPHEN 500 MG TABLET PO PRN (21:27)
[2020-02-28] MEDS: CEFDINIR 300 MG CAPSULE PO SCH (21:27)
[2020-02-28] MEDS: ENOXAPARIN SODIUM 40 MG/0.4 ML SYRG SC SCH (21:27)
[2020-02-29] MEDS: ACETAMINOPHEN 500 MG TABLET PO PRN (04:09)
[2020-02-29 05:54] LABS: Hematocrit 32.6 % (37.0-47.0); Hemoglobin 10.7 gm/dL (12.5-16.0); Mean Corpuscular Hemoglobin 28.2 pg (27-31); Mean Corpuscular Hgb Conc 32.8 g/dl (32-36); Mean Platelet Volume 11.1 fl (8-12.5); Platelet Count 221 K/mm3 (150-450); Red Blood Count 3.79 M/mm3 (4.2-5.4); Red Cell Distribution Width 13.8 % (11.5-14.0)
[2020-02-29 06:05] LABS: Anion Gap 16.1 mmol/L (6.8-13.8); Calcium * 8.3 mg/dL (7.9-10.9); Carbon Dioxide 24.2 mmol/L (24-32.6); Estimated Creat Clear 34.7; Potassium 3.3 mmol/L (3.4-4.6)
[2020-02-29] MEDS: LEVOTHYROXINE SODIUM 88 MCG TABLET PO SCH (07:35)
--- NOTE | 2020-02-29 07:51 | PN ---
Progess Note - Interim Date: 02/29/20 Time: 07:48 Narrative: 02/29/20 07:48 ultrasound negative for dvt. brain MRI no stroke, but possible right maxillary sinusitis (reason for elevated wbc this morning? oral antibiotics started yesterday). MRI low back shows spinal stenosis and foraminal stenosis but the foraminal stenosis is worse on the right and her foot drop is on the left. perhaps the foot drop is related to direct pressure on the peripheral nerve while she was on the floor. the plan will be to continue PT and observation.
[2020-02-29] MEDS: DILTIAZEM HCL 90 MG TABLET PO SCH ×3 (09:07→16:28)
[2020-02-29] MEDS: AMIODARONE HCL 200 MG TABLET PO SCH ×3 (09:07→16:29)
[2020-02-29] MEDS: CEFDINIR 300 MG CAPSULE PO SCH ×2 (09:07→20:29)
[2020-02-29] MEDS: CLOPIDOGREL BISULFATE 75 MG TABLET PO SCH (09:08)
[2020-02-29 12:11] LABS: Urine Bilirubin Negative (NEGATIVE); Urine Blood Negative /ul (NEGATIVE); Urine Ketone Negative (NEGATIVE); Urine Nitrite Negative (NEGATIVE); Urine Protein 15 mg/dL (NEGATIVE); Urine Urobilinogen Normal (NORMAL)
[2020-02-29 12:22] LABS: Urine Appearance Clear (CLEAR); Urine Color Yellow; Urine RBC None Seen /hpf (0-5); Urine WBC TRACE /hpf (0-5)
[2020-02-29 12:23] LABS: Urine Bacteria TRACE; Urine Mucus TRACE
--- NOTE | 2020-02-29 12:34 | PN ---
Subjective - Date and Time Seen Date: 02/29/20 Time: 11:50 Subjective Narrative: Bharti has been been more active again this morning. She requires lots of assistance. Her speech is clear. She has left foot and lower leg swelling with left foot drop, ever since the fall, as well as bruising, pain and some weakness at the last shoulder. Because her left lower leg and foot are swollen and painful. Her facial swelling has gone even more and there are no new areas of ec chymosis. The lower lip is less swollen. She is able to take liquids and food better today. Her heart rate remains in the 120's, but increased to the 180's when ambulation, asymptomatic. BP is stable, not too low. She is afebrile. On the monitor she remains in a fib. Because of the uncontrolled heart rate I increased her diltiazem again today and added amiodarone. The plan as an outpt. will be e chocardiogram and cardiology consult. We will continue to monitor her rhythm. Her potassium remains the same, slightly, for reasons that are still unclear to me. We will check a BMP again tomorrow. Her wbc count has increased, but her Hgb seems to still trending downward, so we check a cbc tomorrow. ultrasound negative for dvt. brain MRI no stroke, but possible right maxillary sinusitis (reason for elevated wbc this morning? oral antibiotics started yesterday). MRI low back shows spinal stenosis and foraminal stenosis but the foraminal stenosis is worse on the right and her foot drop is on the left. perhaps the foot drop is related to direct pressure on the peripheral nerve while she was on the floor. the plan will be to continue PT and observation. Objective - Review of Systems Generalized/Overall Review: Reports: Weakness. Denies: Chills, Fever EENTM: Reports: No Symptoms Reported Respiratory: Reports: No Symptoms Reported Cardiac: Reports: No Symptoms Reported Abdominal: Reports: No Symptoms Reported Genitourinary Symptoms: Reports: No Symptoms Reported Musculoskeletal Complaints: Reports: Back Pain, Other - multiple other areas of pain due to fall. Neurological: Reports: Anxiety - about possibly falling again Skin: Reports: Bruising - a tiny bit better. abrasions stable. Endocrine: Reports: No Symptoms Reported Misc: All systems neg except as marked - Vitals Vitals: Last Vital Signs Temp 36.6 C 02/29/20 10:00 Pulse 124 H 02/29/20 10:00 Resp 20 02/29/20 10:00 BP 127/54 02/29/20 10:00 Pulse Ox 94 02/29/20 10:00 - Abnormal Lab Findings Abnormal Lab Findings: Abnormal Lab Results 02/29/20 02/29/20 02/29/20 Range/Units 05:35 05:35 12:04 WBC 15.0 H D (4.0-10.5) K/mm3 RBC 3.79 L (4.2-5.4) M/mm3 Hgb 10.7 L (12.5-16.0) gm/dL Hct 32.6 L (37.0-47.0) % Potassium 3.3 L (3.4-4.6) mmol/L Anion Gap 16.1 H (6.8-13.8) mmol/L BUN 30 H (3-23) mg/dL Est GFR (Non-Af Amer) 52 L (60-130) mL/min BUN/Creatinine Ratio 28.0 H (9.0-21.6) Random Glucose 152 H (70-110) mg/dL Urine Protein 15 H (NEGATIVE) mg/dL Urine Comment Culture ordered L - Exam Constitutional: Present: Alert, Oriented x3, Cooperative, Well developed, No distress ENT Exam: Present: normal ENT inspection, hearing grossly normal Neck: Present: normal inspection. Absent: lymphadenopathy (R), lymphadenopathy (L), thyromegaly Breasts: Present: Exam deferred Respiratory: Present: lungs clear, no respiratory distress Cardiovascular/Chest: Present: tachycardia, irregularly irregular Abdomen: Present: Normal bowel sounds, soft, nontender, nondistended, no hepatospenomegaly, no masses /Rectal: Present: Exam deferred Extremity: Present: other - about the same Skin Exam: Present: warm/dry, other - bruising and abrasions. Lymphatic: Present: no adenopathy Neurologic: Present: motor weakness Appearance: Present: appropriate appearance, appropriate insight, neat Eye contact: Present: cooperative, good eye contact, normal speech - speech is much better Thoughts: Present: normal thought pattern Assessment/Plan - Problems/Diagnosis (1) Sinusitis Problem: Acute Narrative: seen on brain MRI. ordered oral antibiotics yesterday. possibly the reason for an increased wbc count this morning. (2) Leukocytosis Problem: Acute Qualifiers: Leukocytosis type: unspecified Qualified Code(s): D72.829 - Elevated white blood cell count, unspecified Narrative: cause uncertain. have order blood and urine culture and repeat CXR. repeat CBC in am. (3) Left foot drop Problem: Acute Narrative: possibly related to direct damage to the peripheral nerve. plan is continue PT. (4) Left leg pain Problem: Acute (5) Left leg swelling Problem: Acute (6) Left-sided weakness Problem: Acute Narrative: no evidence of CVA on MRI (7) Abrasions of multiple sites Problem: Acute (8) Fall at home Problem: Acute Qualifiers: Encounter type: subsequent encounter Qualified Code(s): W19.XXXD - Unspecified fall, subsequent encounter; Y92.009 - Unspecified place in unspecified non-institutional (private) residence as the place of occurrence of the external cause (9) Dehydration Problem: Resolved (10) Rhabdomyolysis Problem: Resolved (11) Atrial fibrillation with RVR Problem: Acute (12) Maxillary fracture Problem: Acute Qualifiers: Encounter type: subsequent encounter Fracture type: closed Laterality: right (13) Nasal bone fracture Problem: Acute Qualifiers: Encounter type: subsequent encounter Fracture type: closed (14) Right rib fracture Problem: Acute Qualifiers: Encounter type: subsequent encounter Fracture type: closed (15) Frequent falls Problem: Acute (16) Gait disturbance Problem: Acute (17) Hypoalbuminemia Problem: Acute
[2020-02-29] MEDS: ENOXAPARIN SODIUM 40 MG/0.4 ML SYRG SC SCH (20:29)
[2020-03-01 06:42] LABS: Hematocrit 32.4 % (37.0-47.0); Hemoglobin 10.4 gm/dL (12.5-16.0); Mean Cell Volume 87.3 fl (78-100); Mean Corpuscular Hgb Conc 32.1 g/dl (32-36); Mean Platelet Volume 11.3 fl (8-12.5); Neutrophil # 10.8 K/mm3 (1.3-6.0); Neutrophil % 81.2 % (42-75.0); Platelet Count 241 K/mm3 (150-450); Red Blood Count 3.71 M/mm3 (4.2-5.4); Red Cell Distribution Width 14.1 % (11.5-14.0); White Blood Count 13.2 K/mm3 (4.0-10.5)
[2020-03-01 06:58] LABS: Anion Gap 12.9 mmol/L (6.8-13.8); BUN/Creatinine Ratio 21.1 (9.0-21.6); Calcium * 8.1 mg/dL (7.9-10.9); Carbon Dioxide 25.5 mmol/L (24-32.6); Estimated Creat Clear 41.2; Potassium 3.4 mmol/L (3.4-4.6)
[2020-03-01] MEDS: LEVOTHYROXINE SODIUM 88 MCG TABLET PO SCH (06:59)
[2020-03-01] MEDS: DILTIAZEM HCL 60 MG TABLET PO SCH ×4 (08:00→17:53)
[2020-03-01] MEDS: CLOPIDOGREL BISULFATE 75 MG TABLET PO SCH (08:00)
[2020-03-01] MEDS: AMIODARONE HCL 200 MG TABLET PO SCH ×3 (08:00→17:52)
[2020-03-01] MEDS: CEFDINIR 300 MG CAPSULE PO SCH ×2 (08:00→21:49)
[2020-03-01] MEDS: DILTIAZEM HCL 90 MG TABLET PO SCH (09:50)
--- NOTE | 2020-03-01 12:13 | PN ---
Subjective - Date and Time Seen Date: 03/01/20 Time: 11:50 Subjective Narrative: Bharti has been been a lot more active. She requires a little less assistance. Her speech is clear. She has left foot and lower leg swelling with left foot drop, ever since the fall, as well as bruising, pain and some weakness at the last shoulder. We shall follow PT recs for AFO for left foot.Her facial swelling has gone away even more and there are no new areas of ecchymosis. The lower lip is less swollen. She is able to take liquids and food better today, but there is still some trouble due to her broken dentures which are unusable.. Her heart rate remains in the 120's, asymptomatic. Our plan for that is to slowly increase diltiazem and continue amiodarone. Her rate was previously not controlled on a combination of diltiazem and metoprolol. BP is stable, not too low. She is afebrile. On the monitor she remains in a fib. The plan as an outpt. will be echocardiogram and cardiology consult. We will continue to monitor her rhythm. Her potassium is now normal. We will continue potassium supplement and recheck her bmp. Her wbc count has decreased, but is still not normal. We will check again tomorrow. Her wbc needs to be normal and her heart rate around 100 instead of 120 before I discharge her. Objective - Review of Systems Generalized/Overall Review: Reports: Weakness EENTM: Reports: Nose Pain, Other - improving bruising. Respiratory: Reports: No Symptoms Reported Cardiac: Reports: No Symptoms Reported Abdominal: Reports: No Symptoms Reported Genitourinary Symptoms: Reports: No Symptoms Reported Musculoskeletal Complaints: Reports: Joint Pain, Back Pain Neurological: Reports: Weakness Skin: Reports: Bruising, Other - abrasions healing Endocrine: Reports: No Symptoms Reported Misc: All systems neg except as marked - Vitals Vitals: Last Vital Signs Temp 36.6 C 03/01/20 10:38 Pulse 120 H 03/01/20 10:38 Resp 18 03/01/20 10:38 BP 119/77 03/01/20 10:38 Pulse Ox 93 03/01/20 10:38 - Abnormal Lab Findings Abnormal Lab Findings: Abnormal Lab Results 02/29/20 03/01/20 03/01/20 Range/Units 12:04 06:10 06:10 WBC 13.2 H (4.0-10.5) K/mm3 RBC 3.71 L (4.2-5.4) M/mm3 Hgb 10.4 L (12.5-16.0) gm/dL Hct 32.4 L (37.0-47.0) % RDW 14.1 H (11.5-14.0) % Immature Gran % (Auto) 1.00 H (0.001-0.429) % Immature Gran # (Auto) 0.13 H (0.000-0.0310) K/mm3 Neutrophils % 81.2 H (42-75.0) % Lymphocytes % 8.4 L (20-51) % Neutrophils # 10.8 H (1.3-6.0) K/mm3 Lymphocytes # 1.11 L (1.5-3.5) k/mm3 Random Glucose 112 H (70-110) mg/dL Urine Protein 15 H (NEGATIVE) mg/dL Urine Comment Culture ordered L - Exam Constitutional: Present: Alert, Oriented x3, Cooperative ENT Exam: Present: hearing grossly normal, other - resolving bruising Neck: Present: normal inspection. Absent: lymphadenopathy (R), lymphadenopathy (L), thyromegaly Respiratory: Present: lungs clear, no respiratory distress Cardiovascular/Chest: Present: tachycardia, irregularly irregular Abdomen: Present: Normal bowel sounds, soft, nontender, nondistended, no hepatospenomegaly, no masses /Rectal: Present: Exam deferred Extremity: Present: other - less swelling and bruising Skin Exam: Present: warm/dry Lymphatic: Present: no adenopathy Neurologic: Present: motor weakness Appearance: Present: appropriate appearance, appropriate insight, neat Eye contact: Present: cooperative, good eye contact, normal speech, other Thoughts: Present: normal thought pattern Assessment/Plan - Problems/Diagnosis (1) Atrial fibrillation with RVR Problem: Acute Narrative: rate is still in the 120s/ goal is 100 or less. the plan is increase diltiazem, which I did this morning, and continue amiodarone. she was previously on a combination of calcium channel block and beta dagmar, which was not controlling her rate. she won't be discharged until she reaches goal rate. (2) Sinusitis Problem: Acute Qualifiers: Sinusitis location: maxillary Chronicity: acute Recurrence: not specified as recurrent Qualified Code(s): J01.00 - Acute maxillary sinusitis, unspecified Narrative: continue antibiotic. (3) Leukocytosis Problem: Acute Qualifiers: Leukocytosis type: unspecified Qualified Code(s): D72.829 - Elevated white blood cell count, unspecified Narrative: improving. will check again tomorrow. needs to be normal before discharge. (4) Left foot drop Problem: Acute Narrative: AFO and PT. eventually chcf. (5) Left leg pain Problem: Acute (6) Left leg swelling Problem: Acute (7) Left-sided weakness Problem: Acute (8) Abrasions of multiple sites Problem: Acute (9) Fall at home Problem: Acute Qualifiers: Encounter type: subsequent encounter Qualified Code(s): W19.XXXD - Unspecified fall, subsequent encounter; Y92.009 - Unspecified place in unspecified non-institutional (private) residence as the place of occurrence of the external cause (10) Dehydration Problem: Resolved (11) Rhabdomyolysis Problem: Resolved (12) Maxillary fracture Problem: Acute Qualifiers: Encounter type: subsequent encounter Fracture type: closed Laterality: right (13) Nasal bone fracture Problem: Acute Qualifiers: Encounter type: subsequent encounter Fracture type: closed (14) Right rib fracture Problem: Acute Qualifiers: Encounter type: subsequent encounter Fracture type: closed (15) Frequent falls Problem: Acute (16) Gait disturbance Problem: Acute (17) Hypoalbuminemia Problem: Acute
[2020-03-01] MEDS: ALPRAZolam 0.25 MG TABLET PO PRN (12:39)
[2020-03-01] MEDS ORDERED: AMIODARONE HCL 200 MG TABLET PO SCH (21:00)
[2020-03-01] MEDS: ENOXAPARIN SODIUM 40 MG/0.4 ML SYRG SC SCH (21:49)
[2020-03-02] MEDS: DILTIAZEM HCL 60 MG TABLET PO SCH ×3 (02:08→16:22)
[2020-03-02] MEDS: LEVOTHYROXINE SODIUM 88 MCG TABLET PO SCH (05:40)
[2020-03-02] MEDS: AMIODARONE HCL 200 MG TABLET PO SCH ×2 (05:41→16:22)
[2020-03-02 06:08] LABS: Hematocrit 34.1 % (37.0-47.0); Mean Cell Volume 86.5 fl (78-100); Mean Corpuscular Hemoglobin 27.9 pg (27-31); Mean Corpuscular Hgb Conc 32.3 g/dl (32-36); Mean Platelet Volume 10.8 fl (8-12.5); Neutrophil # 7.4 K/mm3 (1.3-6.0); Neutrophil % 70.7 % (42-75.0); Platelet Count 297 K/mm3 (150-450); Red Blood Count 3.94 M/mm3 (4.2-5.4); White Blood Count 10.5 K/mm3 (4.0-10.5)
--- NOTE | 2020-03-02 07:11 | PN ---
Subjective - Date and Time Seen Date: 03/02/20 Time: 06:50 Subjective Narrative: Bharti continues active. She requires a little less assistance. Her speech is clear. She continues to have left foot and lower leg swelling with left foot drop, ever since the fall, as well as bruising, pain and some weakness at the left shoulder, all of which are improving. She now has an AFO for left foot.Her facial swelling has gone away even more and there are no new areas of ecch ymosis. The lower lip is less swollen. She is able to take liquids and food better today. Her heart rate is slowly decreasing, particularly noticeable if one views the graph of heart rate from admission to now.. Our plan for that is to continue the diltiazem at the same dose, 360 mg daily, while now adding back metoprolol, starting at a low dose. Will will continue her amiodarone.. Her rate was p reviously not controlled on a combination of diltiazem and metoprolol, but the diltiazem dose was lower than this, and the beta dagmar dose was also modest. BP is stable, not too low. She is afebrile. On the monitor she remains in a fib. The plan as an outpt. will be echocardiogram and cardiology consult. She still needs her rhythm and vitals monitored, especially since we are adding metoprolol to the diltiazem and amiodarone. Her wbc count is now back to normal. We will continue her antibiotic for sinusitis. Objective - Review of Systems Generalized/Overall Review: Reports: Weakness EENTM: Reports: Nose Pain, Other - facial pain Respiratory: Reports: No Symptoms Reported Cardiac: Reports: No Symptoms Reported Abdominal: Reports: No Symptoms Reported Genitourinary Symptoms: Reports: No Symptoms Reported Musculoskeletal Complaints: Reports: Other - multiple areas of pain from fall. Neurological: Reports: Anxiety - only a little about possibly falling again. Denies: Depressed Skin: Reports: Bruising Endocrine: Reports: No Symptoms Reported Misc: All systems neg except as marked - Vitals Vitals: Last Vital Signs Temp 36.6 C 03/02/20 07:02 Pulse 118 H 03/02/20 07:02 Resp 18 03/02/20 07:02 BP 123/55 03/02/20 07:02 Pulse Ox 96 03/02/20 07:02 - Abnormal Lab Findings Abnormal Lab Findings: Abnormal Lab Results 03/02/20 Range/Units 05:50 RBC 3.94 L (4.2-5.4) M/mm3 Hgb 11.0 L (12.5-16.0) gm/dL Hct 34.1 L (37.0-47.0) % Immature Gran % (Auto) 1.10 H (0.001-0.429) % Immature Gran # (Auto) 0.12 H (0.000-0.0310) K/mm3 Lymphocytes % 16.0 L (20-51) % Eosinophils % 5.4 H (0.0-3.0) % Neutrophils # 7.4 H (1.3-6.0) K/mm3 - Exam Constitutional: Present: Alert, Oriented x3, Cooperative, Well developed, No distress, Elderly, Obese ENT Exam: Present: hearing grossly normal Neck: Present: normal inspection Breasts: Present: Exam deferred Respiratory: Present: lungs clear, no respiratory distress Cardiovascular/Chest: Present: tachycardia, chest tender - over right lateral ribs, irregularly irregular Abdomen: Present: Normal bowel sounds, soft, nontender, nondistended, no hepatospenomegaly, no masses /Rectal: Present: Exam deferred Extremity: Present: other - findings stable including the swelling of left lower leg and left foot drop. Skin Exam: Present: no cyanosis, cool/dry, other - abrasions clean Lymphatic: Present: no adenopathy Neurologic: Present: normal mood/affect Appearance: Present: appropriate appearance, appropriate insight, neat Eye contact: Present: good eye contact, normal speech Thoughts: Present: normal thought pattern Assessment/Plan - Problems/Diagnosis (1) Atrial fibrillation with RVR Problem: Acute Narrative: rate has slowly decreased, especially apparent if one reviews the graph of rate since admission. I had hoped continuing amiodarone plus slowly increasing the diltiazem would control the problem. While the maximum daily dose of diltiazem is 480 mg, she is still at a substantial dose, 360 mg daily. The plan will be to slowly add back metoprolol. I would not increase the dose any more rapidly than daily. She still needs continuous cardiac monitoring. (2) Sinusitis Problem: Acute Qualifiers: Sinusitis location: maxillary Chronicity: acute Recurrence: not specified as recurrent Qualified Code(s): J01.00 - Acute maxillary sinusitis, unspecified Narrative: continue antibiotics (3) Leukocytosis Problem: Resolved Qualifiers: Leukocytosis type: unspecified Qualified Code(s): D72.829 - Elevated white blood cell count, unspecified (4) Left foot drop Problem: Acute (5) Left leg pain Problem: Acute (6) Left leg swelling Problem: Acute (7) Left-sided weakness Problem: Acute (8) Abrasions of multiple sites Problem: Acute (9) Fall at home Problem: Acute Qualifiers: Encounter type: subsequent encounter Qualified Code(s): W19.XXXD - Unspecified fall, subsequent encounter; Y92.009 - Unspecified place in unspecified non-institutional (private) residence as the place of occurrence of the external cause (10) Dehydration Problem: Resolved (11) Rhabdomyolysis Problem: Resolved (12) Maxillary fracture Problem: Acute Qualifiers: Encounter type: subsequent encounter Fracture type: closed Laterality: right (13) Nasal bone fracture Problem: Acute Qualifiers: Encounter type: subsequent encounter Fracture type: closed (14) Right rib fracture Problem: Acute Qualifiers: Encounter type: subsequent encounter Fracture type: closed (15) Frequent falls Problem: Acute (16) Gait disturbance Problem: Acute (17) Hypoalbuminemia Problem: Chronic
[2020-03-02] MEDS: METOPROLOL TARTRATE 25 MG TABLET PO SCH ×2 (07:53→15:44)
[2020-03-02] MEDS: CEFDINIR 300 MG CAPSULE PO SCH ×2 (08:57→21:22)
[2020-03-02] MEDS: CLOPIDOGREL BISULFATE 75 MG TABLET PO SCH (08:57)
--- NOTE | 2020-03-02 13:23 | PN ---
Progess Note - Interim Date: 03/02/20 Time: 13:20 Narrative: 03/02/20 13:20 I have been planning all along to start non vitamin K anticoagulation, but have held off so far, because of her EXTENSIVE bruising. Recent information is that regarding mortality, even elderly people will benefit more with anticoagulation when they have atrial fibrillation. Had a conversation just now with our pharmacist, and we decided together that her bruising is old enough she is unlikely to start bleeding more. we will replace plavix and lovenox with eliquis.
[2020-03-02] MEDS ORDERED: ALUMINUM HYD PO ONE ×2 (19:47→20:00)
[2020-03-02] MEDS ORDERED: MAG HYDROX PO ONE ×2 (19:47→20:00)
[2020-03-02] MEDS ORDERED: SIMETH PO ONE ×2 (19:47→20:00)
[2020-03-02] MEDS ORDERED: MAG HYDROX/ALUMINUM HYD/SIMETH 30 ML UDC ONE (19:54)
[2020-03-02] MEDS: APIXABAN 5 MG TABLET PO SCH (21:22)
[2020-03-03] MEDS: ALPRAZolam 0.25 MG TABLET PO PRN (00:04)
[2020-03-03] MEDS: METOPROLOL TARTRATE 25 MG TABLET PO SCH ×2 (00:04→08:54)
[2020-03-03] MEDS: DILTIAZEM HCL 60 MG TABLET PO SCH ×4 (00:06→17:57)
[2020-03-03] MEDS: AMIODARONE HCL 200 MG TABLET PO SCH ×2 (05:40→17:57)
[2020-03-03] MEDS: LEVOTHYROXINE SODIUM 88 MCG TABLET PO SCH (05:41)
[2020-03-03] MEDS: APIXABAN 5 MG TABLET PO SCH ×2 (08:51→20:36)
[2020-03-03] MEDS: CEFDINIR 300 MG CAPSULE PO SCH ×2 (08:53→20:37)
[2020-03-03] MEDS: METOPROLOL TARTRATE 50 MG TABLET PO SCH (17:57)
--- NOTE | 2020-03-03 23:14 | PN ---
Subjective - Date and Time Seen Date: 03/03/20 Time: 12:30 Subjective Narrative: Bharti is a very pleasant 89-year-old here following a fall at home which resulted in her being down significantly leading her to have rhabdomyolysis. Patient was brought in for this as well as being found to be in new onset A. fib with RVR.. Rhabdo significant improved, creatinine kinase is downtrending. Kidney function also back to baseline. Main concern now is the patient's heart rates has been difficult to control. Patient feels well otherwise despite significant bruising. Patient does have pain in her left shoulder which is limiting her ability to move it but otherwise is normal function. Patient also does have a left foot drop which I suspect peroneal nerve injury as her significant bruising around her fibular head. No acute events overnight and her lab work is impr oving. Heart rate is still been in the low 100s fairly consistent. Objective - Review of Systems Generalized/Overall Review: Denies: Weakness, Chills, Fever EENTM: Reports: Nose Pain, Other - Cheek pain Respiratory: Denies: Cough, Shortness of Breath Cardiac: Denies: Chest Pain, Edema, Palpitations, Syncope Abdominal: Reports: No Symptoms Reported Genitourinary Symptoms: Reports: No Symptoms Reported Musculoskeletal Complaints: Reports: Joint Pain - Left upper extremity and left lower extremity Neurological: Reports: Other - Left foot dorsiflexion weakness Skin: Reports: Other - Significant facial bruising Endocrine: Reports: No Symptoms Reported - Vitals Vitals: Last Vital Signs Temp 36.4 C 03/03/20 21:56 Pulse 86 03/03/20 22:00 Resp 18 03/03/20 21:56 BP 121/78 03/03/20 21:56 Pulse Ox 96 03/03/20 21:56 - Exam Constitutional: Present: Alert, Oriented x3, Cooperative, No distress, Elderly ENT Exam: Present: other - Significant facial ecchymosis, swollen lower lip Respiratory: Present: lungs clear, normal breath sounds, no respiratory distress Cardiovascular/Chest: Present: no murmur, irregularly irregular Abdomen: Present: Normal bowel sounds, soft, nontender, nondistended Extremity: Present: leg pain - left knee pain. 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 Absent: sensory deficit Appearance: Present: appropriate appearance, appropriate insight Eye contact: Present: cooperative, good eye contact Thoughts: Present: normal thought pattern, normal mood /affect Assessment/Plan Plan Narrative: Bharti is doing well and had no acute events overnight. Vital signs are improving though her heart rate still elevated. Metoprolol was increased to 50 mg 3 times daily today. Discussed possible transfer due to need for cardiology but she has improved with the 3 medicines she is on for rate control and her heart rate has gradually improved with these 3 medicines. Both patient and I feel is appropriate to see how she responds to metoprolol 50 mg 3 times daily with p ossible transfer later today/this evening if not improving. She is hemodynamically stable though and is asymptomatic from a vascular standpoint. We will continue monitor her heart rate and vascular status. Plan will be for referral to cardiology in outpatient setting if her heart rate is controlled. Patient is on Eliquis. Besides the facial pain/left upper extremity pain/lower extremity foot drop patient has no real concerns at this time. AFO for left foot drop, concern for possible peroneal nerve injury and will likely need EMG 3 weeks from fall for diagnosis. White count still within normal limits, continue treatment for sinusitis. Hypokalemia is resolved. Hypertension stable. Continue current treatment plan otherwise, nurse to call questions or concerns. - Problems/Diagnosis (1) Atrial fibrillation with RVR Problem: Acute (2) Rhabdomyolysis Problem: Resolved (3) Fall at home Problem: Acute Qualifiers: Encounter type: subsequent encounter Qualified Code(s): W19.XXXD - Unspeci fied fall, subsequent encounter; Y92.009 - Unspecified place in unspecified non- institutional (private) residence as the place of occurrence of the external cause (4) Acute knee pain Problem: Acute Qualifiers: Laterality: left Qualified Code(s): M25.562 - Pain in left knee (5) Ankle pain, left Problem: Acute Qualifiers: Chronicity: unspecified Qualified Code(s): M25.572 - Pain in left ankle and joints of left foot (6) Maxillary fracture Problem: Acute Qualifiers: Encounter type: subsequent encounter Fracture type: closed Laterality: right (7) Nasal bone fracture Problem: Acute Qualifiers: Encounter type: subsequent encounter Fracture type: closed (8) Traumatic ecchymosis of face Problem: Acute Qualifiers: Encounter type: subsequent encounter Qualified Code(s): S00.83XD - Contusion of other part of head, subsequent encounter (9) Left foot drop Problem: Acute (10) Leukocytosis Problem: Resolved Qualifiers: Leukocytosis type: unspecified Qualified Code(s): D72.829 - Elevated white blood cell count, unspecified (11) Hypokalemia Problem: Chronic (12) Hypertension Problem: Chronic Qualifiers: Hypertension type: essential hypertension Qualified Code(s): I10 - Essential (primary) hypertension (13) Sinusitis Problem: Acute Qualifiers: Sinusitis location: maxillary Chronicity: acute Recurrence: not specified as recurrent Qualified Code(s): J01.00 - Acute maxillary sinusitis, unspecified
[2020-03-04] MEDS: METOPROLOL TARTRATE 50 MG TABLET PO SCH ×3 (01:53→16:18)
[2020-03-04] MEDS: DILTIAZEM HCL 60 MG TABLET PO SCH ×3 (01:53→16:19)
[2020-03-04] MEDS: AMIODARONE HCL 200 MG TABLET PO SCH ×2 (04:58→16:18)
[2020-03-04] MEDS: LEVOTHYROXINE SODIUM 88 MCG TABLET PO SCH (05:00)
[2020-03-04] MEDS: APIXABAN 5 MG TABLET PO SCH ×2 (09:30→20:37)
[2020-03-04] MEDS: CEFDINIR 300 MG CAPSULE PO SCH ×2 (09:31→20:37)
--- NOTE | 2020-03-04 17:53 | PN ---
Subjective - Date and Time Seen Date: 03/04/20 Time: 17:51 Subjective Narrative: Bharti sitting comfortable in her chair when seen today. Heart rate has been well controlled since increasing metoprolol. Majority of readings are in the 80s and 90s with the occasional low 100s when she is up and moving. Patient states she feels well, denies chest pain or shortness of breath. She has no concerns at this time. Likely discharge home tomorrow as long as there is no unforeseen changes to her clinical picture. Objective - Review of Systems Generalized/Overall Review: Reports: No Symptoms Reported EENTM: Reports: Nose Pain, Other - Face pain Respiratory: Reports: No Symptoms Reported Cardiac: Reports: No Symptoms Reported Abdominal: Denies: Nausea, Vomiting Genitourinary Symptoms: Reports: No Symptoms Reported Musculoskeletal Complaints: Reports: Joint Pain - Left shoulder Neurological: Reports: No Symptoms Reported Skin: Reports: Bruising - Vitals Vitals: Last Vital Signs Temp 35.7 C L 03/04/20 14:06 Pulse 97 03/04/20 17:32 Resp 28 H 03/04/20 14:06 BP 124/78 03/04/20 16:19 Pulse Ox 97 03/04/20 14:06 - Exam Constitutional: Present: Alert, Oriented x3, No distress ENT Exam: Present: hearing grossly normal, other - Significant facial ecchymosis, swollen lip. Absent: nasal congestion, nasal drainage Respiratory: Present: lungs clear, normal breath sounds Cardiovascular/Chest: Present: systolic murmur, irregularly irregular - Normal rate Abdomen: Present: soft, nontender, nondistended - Facial ecchymosis from fall Skin Exam: Present: normal color, warm/dry Appearance: Present: appropriate appearance, appropriate insight Eye contact: Present: cooperative, good eye contact Thoughts: Present: normal thought pattern, normal mood /affect Assessment/Plan Plan Narrative: Bharti is doing well and had no acute events overnight. Vital signs much more stable and her heart rate is within normal range at this time. The increase of metoprolol to 50 mg 3 times daily has been a significant improvement. Patient is stable and in outpatient cardiac work-up is appropriate this time. Likely discharge home tomorrow as long as there is no changes in her clinical picture. She is hemodynamically stable and is asymptomatic from a vascular standpoint. We will continue monitor her heart rate and vascular status. Patient is on Eliquis for anticoagulation. Besides the facial pain/left upper extremity pain/lower extremity foot drop patient has no real concerns at this time. AFO for left foot drop, concern for possible peroneal nerve injury and will likely need EMG 3 weeks from fall for diagnosis. White count still within normal limits, continue treatment for sinusitis. Hypokalemia has resolved. Hypertension stable. Continue current treatment plan otherwise, nurse to call questions or concerns. - Problems/Diagnosis (1) Atrial fibrillation with RVR Problem: Acute (2) Rhabdomyolysis Problem: Resolved (3) Fall at home Problem: Acute Qualifiers: Encounter type: subsequent encounter Qualified Code(s): W19.XXXD - Unspecified fall, subsequent encounter; Y92.009 - Unspecified place in unspecified non-institutional (private) residence as the place of occurrence of the external cause (4) Acute knee pain Problem: Acute Qualifiers: Laterality: left Qualified Code(s): M25.562 - Pain in left knee (5) Ankle pain, left Problem: Acute Qualifiers: Chronicity: unspecified Qualified Code(s): M25.572 - Pain in left ankle and joints of left foot (6) Maxillary fracture Problem: Acute Qualifiers: Encounter type: subsequent encounter Fracture type: closed Laterality: right (7) Nasal bone fracture Problem: Acute Qualifiers: Encounter type: subsequent encounter Fracture type: closed (8) Traumatic ecchymosis of face Problem: Acute Qualifiers: Encounter type: subsequent encounter Qualified Code(s): S00.83XD - Contusion of other part of head, subsequent encounter (9) Left foot drop Problem: Acute (10) Leukocytosis Problem: Resolved Qualifiers: Leukocytosis type: unspecified Qualified Code(s): D72.829 - Elevated white blood cell count, unspecified (11) Hypokalemia Problem: Chronic (12) Hypertension Problem: Chronic Qualifiers: Hypertension type: essential hypertension Qualified Code(s): I10 - Essential (primary) hypertension (13) Sinusitis Problem: Acute Qualifiers: Sinusitis location: maxillary Chronicity: acute Recurrence: not specified as recurrent Qualified Code(s): J01.00 - Acute maxillary sinusitis, unspecified
[2020-03-05] MEDS: DILTIAZEM HCL 60 MG TABLET PO SCH ×2 (01:44→09:03)
[2020-03-05] MEDS: METOPROLOL TARTRATE 50 MG TABLET PO SCH ×2 (01:44→09:03)
[2020-03-05] MEDS: LEVOTHYROXINE SODIUM 88 MCG TABLET PO SCH (05:20)
[2020-03-05] MEDS: AMIODARONE HCL 200 MG TABLET PO SCH (05:20)
--- NOTE | 2020-03-05 08:42 | DS ---
(1) Atrial fibrillation with RVR Problem: Acute (2) Sinusitis Problem: Acute Qualifiers: Sinusitis location: maxillary Chronicity: acute Recurrence: not specified as recurrent Qualified Code(s): J01.00 - Acute maxillary sinusitis, unspecified (3) Leukocytosis Problem: Resolved Qualifiers: Leukocytosis type: unspecified Qualified Code(s): D72.829 - Elevated white blood cell count, unspecified (4) Left foot drop Problem: Acute (5) Left leg pain Problem: Acute (6) Left leg swelling Problem: Acute (7) Left-sided weakness Problem: Acute (8) Abrasions of multiple sites Problem: Acute (9) Fall at home Problem: Acute Qualifiers: Encounter type: subsequent encounter Qualified Code(s): W19.XXXD - Unspecified fall, subsequent encounter; Y92.009 - Unspecified place in unspecified non-institutional (private) residence as the place of occurrence of the external cause (10) Dehydration Problem: Resolved (11) Rhabdomyolysis Problem: Resolved Qualifiers: Rhabdomyolysis type: traumatic (12) Maxillary fracture Problem: Acute Qualifiers: Encounter type: subsequent encounter Fracture type: closed Laterality: right (13) Nasal bone fracture Problem: Acute Qualifiers: Encounter type: subsequent encounter Fracture type: closed (14) Right rib fracture Problem: Acute Qualifiers: Encounter type: subsequent encounter Fracture type: closed (15) Frequent falls Problem: Acute (16) Gait disturbance Problem: Acute (17) Hypoalbuminemia Problem: Chronic Date of Discharge:: 03/05/20 Hospital Course: Bharti has gradually become much more active. She requires a little less assi stance. Her speech is clear. She continues to have left foot and lower leg swelling with left foot drop, ever since the fall, as well as bruising, pain and some weakness at the left shoulder, all of which are improving. She now has an AFO for left foot.Her facial swelling has gone away even more and there are no new areas of ecchymosis. The lower lip is less swollen. She is able to take liquids and food without difficulty.. The plan as an outpt. will be echocardiogram and cardiology consult. We will continue her antibiotic for sinusitis. Heart rate remains well controlled since increasing metoprolol. Majority of readings are in the 80s and 90s with the occasional low 100s when she is up and moving. Patient states she feels well, denies chest pain or shortness of breath. Procedures Performed: none Results and Findings: Lab Pending Results 02/25/20 13:39: WBC 17.9 H, RBC 4.66, Hgb 13.3, Hct 41.2, MCV 88.4, MCH 28.5, MCHC 32.3, RDW 14.6 H, Plt Count 259, MPV 11.3, Immature Gran % (Auto) 0.80 H, Immature Gran # (Auto) 0.15 H, Neutrophils % 87.1 H, Lymphocytes % 4.1 L, Monocytes % 7.9, Eosinophils % 0.0, Basophils % 0.1, Nucleated RBC % 0.0, Neutrophils # 15.6 H, Lymphocytes # 0.74 L, Monocytes # 1.4 H, Eosinophils # 0.0, Absolute Basophils 0.0 02/25/20 13:39: Sodium 141, Plasma Sodium 142, Potassium 4.0, Chloride 105, Carbon Dioxide 28.5, Anion Gap 11.5, BUN 51 H D, Creatinine 1.94 H D, Est GFR (Non-Af Amer) 26 L D, BUN/Creatinine Ratio 26.3 H, Random Glucose 158 H, Calcium 8.8, Calcium Adj for Albumin 9.4, Total Bilirubin 0.7, AST 133 H, ALT 66, Alkaline Phosphatase 54, Creatine Kinase 3552 H, Troponin I 0.401 H*, Total Protein 6.8, Albumin 2.9 L 02/25/20 15:57: Urine Color Yellow, Urine Appearance Slightly cloudy, Urine pH 5.0, Ur Specific [place] 1.030, Urine Protein 30 H, Urine Glucose (UA) Negative, Urine Ketones Negative, Urine Blood 250 H, Urine Nitrate Negative, Urine Bilirubin 1 H, Urine Ictotest Positive H, Prot Sulfosalicylic Acd 1+, Urine Urobilinogen Normal, Ur Leukocyte Esterase Negative, Urine RBC 0-5, Urine WBC 0- 5, Ur Epithelial Cells 0-5, Amorphous Sediment Few - 1+, Urine Bacteria None seen, Hyaline Casts 0-5 H, Urine Culture Comments No culture indicated 02/26/20 06:25: WBC 15.0 H, RBC 4.14 L, Hgb 11.8 L, Hct 36.9 L, MCV 89.1, MCH 28.5, MCHC 32.0, RDW 14.8 H, Plt Count 239, MPV 11.6, Immature Gran % (Auto) 0.50 H, Immature Gran # (Auto) 0.07 H, Neutrophils % 82.4 H, Lymphocytes % 9.6 L, Monocytes % 7.4, Eosinophils % 0.0, Basophils % 0.1, Nucleated RBC % 0.0, Neutrophils # 12.3 H, Lymphocytes # 1.44 L, Monocytes # 1.1 H, Eosinophils # 0.0, Absolute Basophils 0.0 02/26/20 06:25: Sodium 142, Plasma Sodium 143 H, Potassium 3.9, Chloride 108 H, Carbon Dioxide 27.9, Anion Gap 10.0, BUN 50 H, Creatinine 1.47 H D, Est GFR (Non-Af Amer) 36 L D, BUN/Creatinine Ratio 34.0 H, Random Glucose 136 H, Calcium 8.4, Calcium Adj for Albumin 9.3, Total Bilirubin 0.8, AST 103 H, ALT 63, Alkaline Phosphatase 50, Creatine Kinase 2426 H, Troponin I 0.340 H*, Total Prot ein 6.0 L, Albumin 2.5 L 02/27/20 06:30: WBC 13.0 H, RBC 4.06 L, Hgb 11.5 L, Hct 36.2 L, MCV 89.2, MCH 28.3, MCHC 31.8 L, RDW 14.4 H, Plt Count 244, MPV 11.6, Immature Gran % (Auto) 0.80 H, Immature Gran # (Auto) 0.11 H, Neutrophils % 78.4 H, Lymphocytes % 12.9 L, Monocytes % 7.3, Eosinophils % 0.5, Basophils % 0.1, Nucleated RBC % 0.0, Neutrophils # 10.2 H, Lymphocytes # 1.68, Monocytes # 1.0, Eosinophils # 0.1, Absolute Basophils 0.0 02/27/20 06:30: Sodium 137, Plasma Sodium 138, Potassium 3.7, Chloride 104, Carbon Dioxide 25.9, Anion Gap 10.8, BUN 57 H, Creatinine 1.53 H, Est GFR (Non- Af Amer) 34 L, BUN/Creatinine Ratio 37.3 H, Random Glucose 132 H, Calcium 8.2, Calcium Adj for Albumin 9.1, Total Bilirubin 0.9, AST 86 H, ALT 71 H, Alkaline Phosphatase 61, Total Protein 6.2, Albumin 2.5 L 02/28/20 06:47: WBC 10.4, RBC 3.87 L, Hgb 11.0 L, Hct 34.2 L, MCV 88.4, MCH 28.4, MCHC 32.2, RDW 14.1 H, Plt Count 226, MPV 11.8, Immature Gran % (Auto) 0.60 H, Immature Gran # (Auto) 0.06 H, Neutrophils % 78.4 H, Lymphocytes % 9.6 L, Monocytes % 8.6, Eosinophils % 2.7, Basophils % 0.1, Nucleated RBC % 0.0, Neutrophils # 8.1 H, Lymphocytes # 1.00 L, Monocytes # 0.9, Eosinophils # 0.3, Absolute Basophils 0.0 02/28/20 06:47: Sodium 140, Plasma Sodium 140, Potassium 3.3 L, Chloride 105, Carbon Dioxide 26.4, Anion Gap 11.9, BUN 51 H, Creatinine 1.15, Est GFR (Non-Af Amer) 47 L D, BUN/Creatinine Ratio 44.3 H, Random Glucose 124 H, Calcium 8.3 02/28/20 07:50: Urine Myoglobin <28 02/29/20 05:35: Sodium 137, Plasma Sodium 138, Potassium 3.3 L, Chloride 100, Carbon Dioxide 24.2, Anion Gap 16.1 H, BUN 30 H, Creatinine 1.07, Est GFR (Non- Af Amer) 52 L, BUN/Creatinine Ratio 28.0 H, Random Glucose 152 H, Calcium 8.3 02/29/20 05:35: WBC 15.0 H D, RBC 3.79 L, Hgb 10.7 L, Hct 32.6 L, MCV 86.0, MCH 28.2, MCHC 32.8, RDW 13.8, Plt Count 221, MPV 11.1 02/29/20 12:04: Urine Color Yellow, Urine Appearance Clear, Urine pH 6.0, Ur Specific [place] 1.010, Urine Protein 15 H, Urine Glucose (UA) Negative, Urine Ketones Negative, Urine Blood Negative, Urine Nitrate Negative, Urine Bilirubin Negative, Prot Sulfosalicylic Acd Negative, Urine Urobilinogen Normal, Ur Leukocyte Esterase Negative, Urine RBC None seen, Urine WBC Trace, Ur Epithelial Cells None seen, Urine Bacteria Trace, Urine Mucus Trace, Urine Comment Culture ordered L 02/29/20 17:25: SARS-CoV-2 (PCR) Not detected 03/01/20 06:10: WBC 13.2 H, RBC 3.71 L, Hgb 10.4 L, Hct 32.4 L, MCV 87.3, MCH 28.0, MCHC 32.1, RDW 14.1 H, Plt Count 241, MPV 11.3, Immature Gran % (Auto) 1.00 H, Immature Gran # (Auto) 0.13 H, Neutrophils % 81.2 H, Lymphocytes % 8.4 L, Monocytes % 7.0, Eosinophils % 2.3, Basophils % 0.1, Nucleated RBC % 0.0, Neutrophils # 10.8 H, Lymphocytes # 1.11 L, Monocytes # 0.9, Eosinophils # 0.3, Absolute Basophils 0.0 03/01/20 06:10: Sodium 136, Plasma Sodium 136, Potassium 3.4, Chloride 101, Carbon Dioxide 25.5, Anion Gap 12.9, BUN 19, Creatinine 0.90, Est GFR (Non-Af Amer) 63 D, BUN/Creatinine Ratio 21.1, Random Glucose 112 H, Calcium 8.1 03/02/20 05:50: WBC 10.5 D, RBC 3.94 L, Hgb 11.0 L, Hct 34.1 L, MCV 86.5, MCH 27.9, MCHC 32.3, RDW 14.0, Plt Count 297, MPV 10.8, Immature Gran % (Auto) 1.10 H, Immature Gran # (Auto) 0.12 H, Neutrophils % 70.7, Lymphocytes % 16.0 L, Monocytes % 6.7, Eosinophils % 5.4 H, Basophils % 0.1, Nucleated RBC % 0.0, Neutrophils # 7.4 H, Lymphocytes # 1.68, Monocytes # 0.7, Eosinophils # 0.6, Absolute Basophils 0.0 Discharge Location: [facility] Disposition: SNF Condition: Serious Level of Care: SNF Discharge Activity: Activity as tolerated - with help Discharge Diet: [facility] soft Usp Therapy: Physical Therapy - PT and OT for weakness, gait disturbance, frequent falls, Occupation Therapy, Speech Therapy - swallowing problems. plus, false teeth are bronken Referrals: Emile Hernandez MD [Primary Care Provider] - Additional Patient Instructions (free text): SNF at [facility] for therapies, PT, OT and ST to evaluate and treat. Follow up with [facility] as an outpatient for fitting of AFO to left foot. please call if you have problems or questions. CBC and BMP in 1 week. Echo cardiogram. Refer cardiology establish care for new a fib with rvr. followup with Dr. Drew in 1 week. Prescriptions (Any new or edited meds): Diltiazem HCl [Cardizem] 120 mg PO Q8H #90 tab Transmission Status: Received by [facility] Amiodarone HCl [Cordarone] 400 mg PO DAILY #30 tab Transmission Status: Received by [facility] Apixaban [Eliquis] 5 mg PO BID #60 tab Transmission Status: Received by [facility] Metoprolol Tartrate [Lopressor] 50 mg PO Q8H #90 tab Transmission Status: Received by [facility] Cefdinir [Omnicef] 300 mg PO BID #20 cap Transmission Status: Received by [facility] Levothyroxine Sodium [Synthroid] 88 mcg PO DAILY #90 tab Transmission Status: Received by [place] ALPRAZolam [Xanax] 0.25 mg PO Q6H PRN #90 tab PRN Reason: Anxiety Transmission Status: Received by [place] Complete Home Medications List: Complete Home Medication List: L. gasseri-B. bifidum-B longum 1.5 billion cell capsule 1 cap PO DAILY cap 02/01/18 artifi.tears(hypromellose)(PF) 0.3 % eye drops 1 drp OP 4-8XD PRN 02/01/18 cholecalciferol (vitamin D3) 125 mcg (5,000 unit) tablet 5,000 unit PO DAILY 02/01/18 multivitamin 1 tab PO DAILY 02/01/18 acetaminophen 500 mg tablet 1,000 mg PO Q6H PRN tab 03/24/18 ALPRAZolam [Xanax] 0.25 mg PO Q6H PRN #90 tab 03/05/20 Amiodarone HCl [Cordarone] 400 mg PO DAILY #30 tab 03/05/20 Apixaban [Eliquis] 5 mg PO BID #60 tab 08/17/20 Cefdinir [Omnicef] 300 mg PO BID #20 cap 03/05/20 Diltiazem HCl [Cardizem] 120 mg PO Q8H #90 tab 03/05/20 Levothyroxine Sodium [Synthroid] 88 mcg PO DAILY #90 tab 03/05/20 Metoprolol Tartrate [Lopressor] 50 mg PO Q8H #90 tab 03/05/20 Amb Orders for Discharge: Consult Physician Location: None Selected Basic Metabolic Panel Time Frame: 1 Week, Facility: [facility], Location: Laboratory CBC Time Frame: 1 Week, Facility: [facility], Location: Laboratory US Echocardiogram Complete * Time Frame: 1 Week, Facility: [facility], Location: Radiology Forms: Patient Portal Registration
[2020-03-05] MEDS: CEFDINIR 300 MG CAPSULE PO SCH (09:03)
[2020-03-05] MEDS: APIXABAN 5 MG TABLET PO SCH (09:03)
[2020-03-05 13:38] VITALS: BP 124/63
== END 2020-03-05 13:30 | DRG 565 ==
LOC: ER 12:28 → MS 16:49
PROVIDERS: ADMIT Family Medicine; ATTEND Allergy & Immunology
DX: S02.40CA Maxillary fracture, right side, initial encounter for closed fracture; S40.022A Contusion of left upper arm, initial encounter; S22.31XA Fracture of one rib, right side, initial encounter for closed fracture; J01.00 Acute maxillary sinusitis, unspecified; M54.32 Sciatica, left side; S40.011A Contusion of right shoulder, initial encounter; S00.83XA Contusion of other part of head, initial encounter; R40.2413 Glasgow coma scale score 13-15, at hospital admission; E86.0 Dehydration; S80.02XA Contusion of left knee, initial encounter; W01.0XXA Fall on same level from slipping, tripping and stumbling without subsequent striking against object, initial encounter; E87.6 Hypokalemia; I48.20 Chronic atrial fibrillation, unspecified; S40.021A Contusion of right upper arm, initial encounter; Z74.09 Other reduced mobility; S02.2XXA Fracture of nasal bones, initial encounter for closed fracture; Z79.01 Long term (current) use of anticoagulants; D35.01 Benign neoplasm of right adrenal gland; M21.372 Foot drop, left foot; I10 Essential (primary) hypertension; S20.212A Contusion of left front wall of thorax, initial encounter; M17.0 Bilateral primary osteoarthritis of knee; R79.89 Other specified abnormal findings of blood chemistry; S80.01XA Contusion of right knee, initial encounter; G62.9 Polyneuropathy, unspecified; T79.6XXA Traumatic ischemia of muscle, initial encounter; E88.09 Other disorders of plasma-protein metabolism, not elsewhere classified; Z91.81 History of falling; F41.9 Anxiety disorder, unspecified; S20.211A Contusion of right front wall of thorax, initial encounter; R47.9 Unspecified speech disturbances
CPT/HCPCS: 36415; 70450; 70486; 70553; 71010; 71045; 71250; 72110; 72125; 72148; 72170; 73030; 73110; 73562; 73630; 80048; 80053; 81001; 82550; 83874; 84484; 85025; 85027; 87040; 87086; 92507; 92610; 93005; 93971; 96361; 96365; 96366; 96375; 96376; 97110; 97116; 97163; 97165; 97530; 97535; 99285; 99291; A9576; C9803; U0001